=== PATIENT | female | born 1980 | race Caucasian/White ===

== ENCOUNTER 2023-09-23 12:07 | Outpatient (OUT) | payer OTHER, SELFPAY ==
[2023-09-23 12:29] LABS: Basophils Absolute Auto 0.1 10^3/uL (0.0-0.1); Basophils Percent Auto 0.9 % (0.2-2.0); Eosinophils Absolute Auto 0.1 10^3/uL (0.0-0.7); Eosinophils Percent Auto 0.9 % (0.9-7.0); Hematocrit 42.2 % (36.0-48.0); Immature Granulocytes Abs Auto 0.03 10^3/uL (0.00-0.03); Immature Granulocytes Pct Auto 0.5 % (0.0-0.5); Lymphocytes Absolute Auto 1.8 10^3/uL (1.2-3.8); Lymphocytes Percent Auto 33.6 % (20.5-60.0); Mean Corpuscular HGB Conc 33.2 g/dL (29.9-35.2); Mean Corpuscular Hemoglobin 32.3 pg (26.7-34.0); Mean Corpuscular Volume 97.5 fL (81.0-99.0); Mean Platelet Volume 8.4 fL (9.5-13.5); Monocytes Absolute Auto 0.6 10^3/uL (0.3-0.8); Monocytes Percent Auto 10.2 % (1.7-12.0); Neutrophils Percent Auto 53.9 % (43.0-75.0); Platelet Count 257 10^3/uL (150-450); Red Blood Count 4.33 10^6/uL (4.20-5.40); Red Cell Distribution Width 12.1 % (11.0-15.0); White Blood Count 5.5 10^3/uL (4.0-11.0)
[2023-09-23 12:43] LABS: Estimated Average Glucose 105 mg/dL; Glycohemoglobin A1C 5.3 % (4.5-6.2)
[2023-09-23 13:55] LABS: Alanine Aminotransferase 25 U/L (14-59); Albumin Globulin Ratio 1.3; Albumin Level 4.4 g/dL (3.4-5.0); Alkaline Phosphatase 44 U/L (46-116); Anion Gap 14.9; Aspartate Amino Transferase 14 U/L (15-37); BUN Creatinine Ratio 13.3; Bilirubin Direct 0.1 mg/dL (0.0-0.2); Bilirubin Total 0.5 mg/dL (0.2-1.0); Calcium 9.1 mg/dL (8.5-10.1); Carbon Dioxide 29.2 mmol/L (21.0-32.0); Chloride 101 mmol/L (98-107); Chol HDL Ratio 2.2; Cholesterol 228 mg/dL (<=200); Estimated GFR (African America >60 (>=60); Estimated GFR (Non-African Ame >60 (>=60); Globulin 3.3 g/dL; Glucose 88 mg/dL (74-106); HDL Cholesterol 103 mg/dL (40-60); Potassium 4.1 mmol/L (3.5-5.1); Sodium 141 mmol/L (136-145); Thyroid Stimulating Hormone 0.925 uIU/mL (0.358-3.740); Total Protein 7.7 g/dL (6.4-8.2); Triglycerides 52 mg/dL (<=150); VLDL CHOLESTEROL 10.4 mg/dL
== END 2023-09-23 12:08 | disposition home or self-care (01) ==
LOC: LAB 12:15
PROVIDERS: PCP Family Medicine; Visit Provider Family Medicine
DX: Z00.00 Encounter for general adult medical examination without abnormal findings (principal)
CPT/HCPCS: 36415; 80048; 80061; 80076; 83036; 84443; 85025

== ENCOUNTER 2024-01-14 19:13 | Outpatient (REF) | payer OTHER, SELFPAY ==
--- OUTSIDE RECORDS SUMMARY | 2024-01-14 19:19 | XMS_ITS | CCD ---
Author Name Unknown Address [address] [place] [id number] Organization [facility] Care Team Providers Care Hop Weigher Name Role Phone CARMELINA, DR CAROLINE Jaffe Consulting Unavailable NADERER, DR CAROLINE Jaffe Primary Care Unavailable NADERER, DR CAROLINE Jaffe Admitting Unavailable NADERER, DR CAROLINE Jaffe Attending Unavailable NADERER, DR CAROLINE Jaffe Primary Care Unavailable NARCISA, DR SLOAN Attending Unavailable NARCISA, DR SLOAN Consulting Unavailable NARCISA, DR SLOAN Admitting Unavailable ZIEBER, DR MICHAEL Al Consulting Unavailable CARMELINA, DR CAROLINE Jaffe Primary Care Unavailable NARCISA, DR SLOAN Attending Unavailable NARCISA, DR SLOAN Consulting Unavailable NARCISA, DR SLOAN Admitting Unavailable Problems Problem Classification Problem Date Documented Date Episodic/Chronic Benign neoplasm of uterus (1 source) Leiomyoma of uterus, unspecified; Translations: [LEIOMYOMA OF UTERUS UNSPECIFIED] Onset: 10-04-2022 Episodic Immunizations and screening for infectious disease (1 source) Encounter for screening for human papillomavirus (HPV); Translations: [ENC SCREENING HUMAN PAPILLOMAVIRUS] Onset: 09-13-2022 Episodic Menstrual disorders (4 sources) Excessive and frequent menstruation with irregular cycle; Translations: [EXCESS AND FREQ MEN W/IRREG CYCLE] Onset: 09-29-2022 Chronic Other screening for suspected conditions (not mental disorders or infectious disease) (5 sources) Encounter for screening mammogram for malignant neoplasm of breast; Translations: [Encounter for screening for malignant neoplasm of cervix] Onset: 09-09-2022 Episodic Residual codes; unclassified (1 source) Family history of malignant neoplasm of breast; Translations: [FAMILY HX MALIG NEOPLASM OF BREAST] Onset: 10-04-2022 Episodic Residual codes; unclassified (1 source) Family history of malignant neoplasm of other organs or systems; Translations: [FAM HX MALIG NEOPLASM OTH ORGN/SYS] Onset: 10-04-2022 Episodic Results Test Name Value Interpretation Reference Range Facility MG MAMM SCREEN 3D TEGAN CADon 09-29-2022 MG MAMM SCREEN 3D TEGAN CAD Patient: KIM PAGAN Exam Date: 09/29/2022 : 1980 Gender:F Ordering : DR NATHALIA BREWSTER . Admission #: [id number] Family : Order #: [id number] CLICK HERE TO VIEW EXAM RADIOLOGY REPORT PROCEDURE: MAMMOGRAM SCREENING 3D BILATERAL CAD COMPARISON: MG MAMM SCREEN 3D TEGAN CAD, 03/20/2021. MG MAMM SCREEN TEGAN W CAD, 03/17/2019. INDICATIONS: Screening mammography Calculator Name NCI Breast Cancer Risk Assessment Tool 5 Year Breast Cancer Risk 0.80% Lifetime Breast Cancer Risk 10.80% Personal Breast Cancer No Personal Ovarian Cancer No Treatments None Family Cancers Grandmother-paternal with breast cancer at age 70; Mother with endometrial cancer at age 71. LOCATION: [facility] BREAST COMPOSITION: Extremely dense, which lowers the sensitivity of mammography. FINDINGS: DIAGNOSTIC CATEGORY 2--BENIGN FINDING: RIGHT BREAST: No significant suspicious finding. Stable benign-appearing calcifications are present. No significant change has occurred. LEFT BREAST: No significant suspicious finding. No significant change has occurred. RECOMMENDATIONS: ROUTINE MAMMOGRAM AND CLINICAL EVALUATION IN 12 MONTHS. PLEASE NOTE: A NORMAL MAMMOGRAM DOES NOT EXCLUDE THE POSSIBILITY OF BREAST CANCER. A CLINICALLY SUSPICIOUS PALPABLE LUMP SHOULD BE BIOPSIED. Dictated by: Michael Epps M.D. on 09/30/2022 at 13:21 Approved by: Michael Epps M.D. on 09/30/2022 at 13:46 Normal [facility] US PELVIS AND TRANSVAGon US PELVIS AND TRANSVAG EXAMINATION: US PELVIS AND TRANSVAG HISTORY: Excessive menstruation with irregular cycle COMPARISON: Ultrasound pelvis 02/19/2021 TECHNIQUE: Transabdominal and transvaginal sonographic examination. FINDINGS: UTERUS: Heterogeneous, hypoechoic 1.2 cm rounded area within posterior myometrium which appears to contact the endometrial; likely a leiomyoma. Multiple small nabothian cysts within nicole of cervix. Uterus size: 9.8 x 5.4 x 6.7 cm ENDOMETRIUM: Normal homogeneous appearance. Endometrial thickness: 14 mm RIGHT OVARY: Contains a 2.9 cm benign-appearing cyst. Duplex Doppler demonstrates normal waveform and flow; resistive index 0.4. Ovary size: 4.4 x 4.0 x 2.7 cm LEFT OVARY: Normal size and appearance. Duplex Doppler demonstrates normal waveform and flow; resistive index 0.4. Ovary size: 2.1 x 1.7 x 2.2 cm CUL-DE-SAC: Unremarkable. No significant free fluid. BLADDER: Unremarkable. OTHER: None. IMPRESSION: 1. There appears to be a 1.2 cm leiomyoma within posterior uterine wall contacting the endometrial which may contribute to patient's symptoms. Electronically authenticated by: MICHAEL EPPS Date: 2022-09-29 19:23 Normal [facility] CBC AUTO DIFFon 09-22-2022 BASO # 0.0 103/ul Normal 0.0-0.1 [facility] Comment on above: Performed By: #### C BC #### [facility] [address] [place] [address] Dr. Ag Rubio Basophils/100 WBC (Bld) 0.9 % Normal 0.2-2.0 [facility] Comment on above: Performed By: #### C BC #### [facility] [address] [place] [address] Dr. Ag Rubio EO # 0.1 103/ul Normal 0.0-0.7 [facility] Comment on above: Performed By: #### C BC #### [facility] [address] [place] [address] Dr. Ag Rubio Eosinophils/100 WBC (Bld) 1.1 % Normal 0.9-7.0 [facility] Comment on above: Performed By: #### C BC #### [facility] [address] [place] [address] Dr. Ag Rubio Erythrocyte distribution width (RBC) [Ratio] 12.5 % Normal 11.0-15.0 [facility] Comment on above: Performed By: #### C BC #### [facility] [address] [place] [address] Dr. Ag Rubio Hematocrit (Bld) [Volume fraction] 38.7 % Normal 36.0-48.0 [facility] Comment on above: Performed By: #### C BC #### [facility] [address] [place] [address] Dr. Ag Rubio Hemoglobin (Bld) [Mass/Vol] 12.9 g/dL Normal 12.0-16.0 [facility] Comment on above: Performed By: #### C BC #### [facility] [address] [place] [address] Dr. Ag Rubio IG # 0.02 10e3/ul Normal 0.00-0.03 [facility] Comment on above: Performed By: #### C BC #### [facility] [address] [place] [address] Dr. Ag Rubio IG % 0.4 % Normal 0.0-0.5 [facility] Comment on above: Performed By: #### C BC #### [facility] [address] [place] [address] Dr. Ag Rubio LYMPH # 1.8 103/ul Normal 1.2-3.8 [facility] Comment on above: Performed By: #### C BC #### [facility] [address] [place] [address] Dr. Ag Rubio Lymphocytes/100 WBC (Bld) 37.4 % Normal 20.5-60.0 [facility] Comment on above: Performed By: #### C BC #### [facility] [address] [place] [address] Dr. Ag Rubio MANUAL DIFF REQ NO Normal [facility] Comment on above: Performed By: #### C BC #### [facility] [address] [place] [address] Dr. Ag Rubio MCH (RBC) [Entitic mass] 31.8 pg Normal 26.7-34.0 [facility] Comment on above: Performed By: #### C BC #### [facility] [address] [place] [address] Dr. Ag Rubio MCHC (RBC) [Mass/Vol] 33.3 g/dL Normal 29.9-35.2 [facility] Comment on above: Performed By: #### C BC #### [facility] [id number] Ag Rubio MCV (RBC) [Entitic vol] 95.3 fL Normal 81.0-99.0 [facility] Comment on above: Performed By: #### C BC #### [facility] [address] [address] [address] Ag Rubio MONO # 0.6 103/ul Normal 0.3-0.8 [facility] Comment on above: Performed By: #### C BC #### [facility] [address] [address] [address] Ag Rubio Monocytes/100 WBC (Bld) 12.4 % Critically high 1.7-12.0 [facility] Comment on above: Performed By: #### C BC #### [facility] [address] [place] [address] Dr. Ag Ruibo NEUT # 2.2 103/ul Normal 1.4-6.5 [facility] Comment on above: Performed By: #### C BC #### [facility] [address] [place] [address] Dr. Ag Rubio Neutrophils/100 WBC (Bld) 47.8 % Normal 43.0-75.0 [facility] Comment on above: Performed By: #### C BC #### [facility] [address] [place] [address] Dr. Ag Rubio Platelet mean volume (Bld) [Entitic vol] 9.1 fL Critically low 9.5-13.5 [facility] Comment on above: Performed By: #### C BC #### [facility] [address] [place] [address] Dr. Ag uRbio PLT 251 103/ul Normal 150-450 [facility] Comment on above: Performed By: #### C BC #### [facility] [address] [place] [address] Dr. Ag Rubio RBC 4.06 106/ul Critically low 4.20-5.40 [facility] Comment on above: Performed By: #### C BC #### [facility] [address] [place] [address] Dr. Ag Rubio WBC 4.7 103/ul Normal 4.0-11.0 [facility] Comment on above: Performed By: #### C BC #### [facility] [address] [address] [address] Ag Rubio GLYCOHEMOGLOBIN A1Con 2021 ADA RECOMMENDATION SEE BELOW Normal [facility] Comment on above: Result Comment: ADA RECOMMENDED LIMIT 4.0 - 6.0 ADA THERAPEUTIC TARGET < 7.0 ACTION SUGGESTED > 7.0 Performed By: #### A 1C #### [facility] [address] [address] [address] Ag Rubio Glucose [Mass/Vol] 117 mg/dL Normal [facility] Comment on above: Performed By: #### A 1C #### [facility] [address] [address] [address] Ag Rubio HbA1c (Bld) [Mass fraction] 5.7 % Normal 4.5-6.2 [facility] Comment on above: Performed By: #### A 1C #### [facility] [address] [address] [address] Ag Rubio LIPID PROFILEon 09-22-2022 CHOL-HDL RATIO NORM SEE BELOW Normal [facility] Comment on above: Result Comment: 3.3 - 4.4 LOW RISK 4.4 - 7.1 AVERAGE RISK 7.1 - 11.0 MODERATE RISK >11.0 HIGH RISK Performed By: #### T SH, BMP, LIVER, LIPID #### [facility] [address] [address] [address] Ag Rubio Cholesterol [Mass/Vol] 197 mg/dL Normal <=200 [facility] Comment on above: Performed By: #### T SH, BMP, LIVER, LIPID #### [facility] [address] [address] [address] Ag Rubio Cholesterol in HDL [Mass/Vol] 90 mg/dL Critically high 40-60 [facility] Comment on above: Performed By: #### T SH, BMP, LIVER, LIPID #### [facility] [address] [address] [address] Ag Rubio Cholesterol in LDL [Mass/Vol] 98.0 mg/dL Normal [facility] Comment on above: Performed By: #### T SH, BMP, LIVER, LIPID #### [facility] [address] [address] [address] Ag uRbio Cholesterol.total/Cho lesterol in HDL [Mass ratio] 2.2 {ratio} Normal [facility] Comment on above: Performed By: #### T SH, BMP, LIVER, LIPID #### [facility] [address] [address] [address] Ag Rubio HDL NORMAL > or = 60 mg/dl - LO W CARDIOVASCULAR RISK <40 mg/dl - HIGH CARDIOVASCULAR RISK Normal [facility] Comment on above: Performed By: #### T SH, BMP, LIVER, LIPID #### [facility] [address] [place] [address] Dr. Ag Rubio LDL CALC NORMAL SEE BELOW Normal [facility] Comment on above: Result Comment: <100 mg/dl OPTIMAL 100 - 129 mg/dl NEAR OR ABOVE OPTIMAL 130 - 159 mg/dl BORDERLINE HIGH 160 - 189 mg/dl HIGH >190 mg/dl VERY HIGH Performed By: #### T SH, BMP, LIVER, LIPID #### [facility] [address] [place] [address] Dr. Ag Rubio Triglyceride [Mass/Vol] 45 mg/dL Normal <=150 [facility] Comment on above: Performed By: #### T SH, BMP, LIVER, LIPID #### [facility] [address] [address] [address] Ag Rubio VLDL CALC 9.0 mg/dL Normal [facility] Comment on above: Performed By: #### T SH, BMP, LIVER, LIPID #### [facility] [address] [address] [address] Ag Rubio LIVER PROFILEon 09-22-2022 Albumin [Mass/Vol] 4.1 g/dL Normal 3.4-5.0 [facility] Comment on above: Performed By: #### T SH, BMP, LIVER, LIPID #### [facility] [address] [place] [address] Dr. Ag Rubio Albumin/Globulin [Mass ratio] 1.3 {ratio} Normal [facility] Comment on above: Performed By: #### T SH, BMP, LIVER, LIPID #### [facility] [address] [address] [address] Ag Rubio ALP [Catalytic activity/Vol] 40 U/L Critically low 46-116 [facility] Comment on above: Performed By: #### T SH, BMP, LIVER, LIPID #### [facility] [address] [place] [address] Dr. Ag Rubio ALT [Catalytic activity/Vol] 25 U/L Normal 14-59 [facility] Comment on above: Performed By: #### T SH, BMP, LIVER, LIPID #### [facility] [address] [place] [address] Dr. Ag Rubio AST [Catalytic activity/Vol] 20 U/L Normal 15-37 [facility] Comment on above: Performed By: #### T SH, BMP, LIVER, LIPID #### [facility] [address] [place] [address] Dr. Ag Rubio BILI, CONJUGATED 0.1 mg/dL Normal 0.0-0.[address] [facility] Comment on above: Performed By: #### T SH, BMP, LIVER, LIPID #### [facility] [address] [place] [address] Dr. Ag Rubio Bilirubin [Mass/Vol] 0.4 mg/dL Normal 0.2-1.0 [facility] Comment on above: Performed By: #### T SH, BMP, LIVER, LIPID #### [facility] [address] [place] [address] Dr. Ag Rubio Globulin (S) [Mass/Vol] 3.1 g/dL Normal [facility] Comment on above: Performed By: #### T SH, BMP, LIVER, LIPID #### [facility] [address] [place] [address] Dr. Ag Rubio Protein [Mass/Vol] 7.2 g/dL Normal 6.4-8.2 [facility] Comment on above: Performed By: #### T SH, BMP, LIVER, LIPID #### [facility] [address] [place] [address] Dr. Ag Rubio PROF CHEM 8 (BAS METB)on Anion gap [Moles/Vol] 10.1 mmol/L Normal [facility] Comment on above: Performed By: #### T SH, BMP, LIVER, LIPID #### [facility] [address] [place] [address] Dr. Ag Rubio Calcium [Mass/Vol] 9.3 mg/dL Normal 8.5-10.1 [facility] Comment on above: Performed By: #### T SH, BMP, LIVER, LIPID #### [facility] [address] [place] [address] Dr. Ag Rubio Chloride [Moles/Vol] 103 mmol/L Normal 98-107 [facility] Comment on above: Performed By: #### T SH, BMP, LIVER, LIPID #### [facility] [address] [place] [address] Dr. Ag Rubio CO2 [Moles/Vol] 28.9 mmol/L Normal 21.0-32.[address] [facility] Comment on above: Performed By: #### T SH, BMP, LIVER, LIPID #### [facility] [address] [place] [address] Dr. Ag Rubio Creatinine [Mass/Vol] 1.24 mg/dL Critically high 0.55-1.02 [facility] Comment on above: Performed By: #### T SH, BMP, LIVER, LIPID #### [facility] [address] [place] [address] Dr. Ag Rubio EGFR-AF LEBANESE 57 mL/min/1.73m2 Critically low >=60 [facility] Comment on above: Performed By: #### T SH, BMP, LIVER, LIPID #### [facility] [address] [place] [address] Dr. Ag Rubio EGFR-NON AF LEBANESE 47 mL/min/1.73m2 Critically low >=60 [facility] Comment on above: Performed By: #### T SH, BMP, LIVER, LIPID #### [facility] [address] [address] [address] Ag Rubio Glucose [Mass/Vol] 76 mg/dL Normal 74-106 [facility] Comment on above: Performed By: #### T SH, BMP, LIVER, LIPID #### [facility] [address] [address] [address] Ag Rubio Potassium [Moles/Vol] 4.0 mmol/L Normal 3.5-5.1 [facility] Comment on above: Performed By: #### T SH, BMP, LIVER, LIPID #### [facility] [address] [address] [address] Ag Rubio Sodium [Moles/Vol] 138 mmol/L Normal 136-145 [facility] Comment on above: Performed By: #### T SH, BMP, LIVER, LIPID #### [facility] [address] [place] [address] Dr. Ag Rubio Urea nitrogen [Mass/Vol] 10.0 mg/dL Normal 7.0-18.0 [facility] Comment on above: Performed By: #### T SH, BMP, LIVER, LIPID #### [facility] [address] [address] [address] gA Rubio Urea nitrogen/Creatinine [Mass ratio] 8.1 mg/mg Normal [facility] Comment on above: Performed By: #### T SH, BMP, LIVER, LIPID #### [facility] [address] [place] [address] Dr. Ag Rubio TSHon 09-22-2022 TSH 0.934 uIU/mL Normal 0.358-3.740 [facility] Comment on above: Performed By: #### T SH, BMP, LIVER, LIPID #### [facility] [address] [place] [address] Dr. Ag Rubio PAP ACOG PANEL 2: 30 to 65on 09-17-2022 . . Normal [facility] Comment on above: Result Comment: Perf ormed at: WB Performed By: #### [id number] #### [facility] [address] [place] [address] Dr. Ag Rubio Age Gdln ACOG Testing 30-65 Normal [facility] Comment on above: Performed By: #### [id number] #### [facility] [address] [place] [address] Dr. Ag Rubio DIAGNOSIS: Comment Normal [facility] Comment on above: Result Comment: NEGA TIVE FOR INTRAEPITHELIAL LESION OR MALIGNANCY. Performed at: WB Performed By: #### [id number] #### [facility] [address] [place] [address] Dr. Ag Rubio HPV Aptima Negative Normal Negative [facility] Comment on above: Result Comment: This nucleic acid amplification test detects fourteen high-risk HPV types (16,18,31,33,35,39,45,51,52,56,58,59,66,68) without differentiation. Performed at: =G Performed By: #### [id number] #### [facility] [address] [place] [address] Dr. Ag Rubio HPV Genotype Reflex Comment Normal [facility] Comment on above: Result Comment: Crit eria not met, HPV Genotype not performed. Performed at: WB Performed By: #### [id number] #### [facility] [address] [place] [address] Dr. Ag Rubio Methodology: Comment [facility] Comment on above: Result Comment: This liquid based ThinPrep(R) pap test was screened with the use of an image guided system. Performed at: WB Performed By: #### [id number] #### [facility] [address] [place] [address] Dr. Ag Rubio Note: Comment Normal [facility] Comment on above: Result Comment: The Pap smear is a screening test designed to aid in the detection of premalignant and malignant conditions of the uterine cervix. It is not a diagnostic procedure and should not be used as the sole means of detecting cervical cancer. Both false-positive and false-negative reports do occur. . Performed at: WB Performed By: #### [id number] #### [facility] [address] [place] [address] Dr. Ag Rubio Performed by: Comment Normal [facility] Comment on above: Result Comment: Rm Guerra, Party Supply Specialist (ASCP) Performed at: WB Performed By: #### [id number] #### [facility] [address] [place], [place] [address] Dr. Ag Rubio Specimen adequacy: Comment Normal [facility] Comment on above: Result Comment: Sati sfactory for evaluation. Endocervical and/or squamous metaplastic cells (endocervical component) are present. Performed at: WB Performed By: #### [id number] #### [facility] [address] [place], [place] [address] Dr. Ag Rubio Encounters Encounter Date Encounter Type Care Provider Facility Start: 09-29-2022 End: 09-30-[address] CAROLINE COSEM Facility:[facility] Start: 09-27-2022 Encounter for genera l adult medical examination without abnormal findings DR CAROLINE COSME [facility] Start: 09-22-2022 End: 09-23-[address] CAROLINE COSME Facility:[facility] Start: 09-22-2022 End: 09-23-2022 Encounter for general adult medical examination without abnormal findings DR CAROLINE COSME Facility:[facility] Start: 09-09-2022 End: 09-09-[address] CAROLINE COSME Facility:[facility] Payers Date Payer Category Payer Unknown [id number] [id number] [id number] 1980 Unknown [id number] [id number] [id number] 1980 Unknown [id number] [id number] 1960 Unknown [id number] Summary Purpose Family History No Family History Records Found Advance Directives No Advanced Directives Records Found Additional Source Comments INFORMATION SOURCE (unrecogn ized section and content) DATE CREATED AUTHOR 10/04/2022 [facility] FOR RECORDS PERTAINING TO PATIENTS WHO ARE OR HAVE BEEN ENROLLED IN A CHEMICAL DEPENDENCY/SUBSTANCEABUSE PROGRAM, SOME INFORMATION MAY BE OMITTED. This clinical summary was aggregated from multiple sources. Caution should be exercised in using it in the provision of clinical care. This summary normalizes information from multiple sources, and as a consequence, information in this document may materially change the coding, format and clinical context of patient data. In addition, data may be omitted in some cases. CLINICAL DECISIONS SHOULD BE BASED ON THE PRIMARY CLINICAL RECORDS. [facility]. provides no warranty or guarantee of the accuracy or completeness of information in this document.
[2024-01-20 11:09] LABS: Age Gdln ACOG Testing Note (.); HPV Aptima Negative (Negative); IGP, Aptima HPV, rfx 16/18,45 Note (.)
== END 2024-01-14 19:14 | disposition home or self-care (01) ==
LOC: LAB 19:13
PROVIDERS: PCP Family Medicine; Visit Provider Emergency Medicine
DX: Z01.419 Encounter for gynecological examination (general) (routine) without abnormal findings (principal)
CPT/HCPCS: 87624; G0145

== ENCOUNTER 2024-02-15 11:05 | Outpatient (OUT) | payer OTHER, SELFPAY ==
--- NOTE | 2024-02-15 11:09 | US_ITS ---
The [address] [address] Patient Name: KIM PAGAN MRN: [id number] date: 1980 Sex: F Assigned Patient Location: [facility] Current Patient Location: [facility] Accession/Order Number: [id number] Exam Date: 02/15/2024 11:09 Report Date: 02/15/2024 12:42 At the request of: BRANDON RICKS Procedure: US pelvis w/ transvaginal EXAMINATION: US pelvis w/ transvaginal HISTORY: MENORRHAGIA COMPARISON: No relevant comparison available. FINDINGS: Transabdominal and transvaginal images The uterus is normal in size and contour measuring 9.4 x 3.6 x 5.6 cm. Anteverted, anteflexed. Heterogeneous echotexture with 2 focal masses measuring 2.3 and 1.9 cm. The endometrium measures 9 mm, normal. The right ovary is normal measuring 4.6 x 2.6 x 3.5 cm. Normal color and Doppler flow. Areas of anechoic echogenicity measuring up to 3.6 cm The left ovary measures 2.8 x 1.7 x 2.7 cm. Normal color Doppler flow US/US pelvis w/ transvaginal IMPRESSION: 2 myometrial masses, fibroids are statistically favored 3.6 cm right ovarian cyst Electronically authenticated by: IVETTE WINSLOW Date: 02/15/2024 12:42
--- OUTSIDE RECORDS SUMMARY | 2024-02-15 11:21 | XMS_ITS | CCD ---
Author Organization [facility] Care Team Providers Care Medical Intern Name Role Phone CARMELINA, DR CAROLINE Jaffe Consulting Unavailable NADERER, DR CAROLINE Jaffe Primary Care Unavailable NADERER, DR CAROLINE Jaffe Admitting Unavailable NADERER, DR CAROLNIE Jaffe Attending Unavailable NADERER, DR CAROLINE Jaffe Primary Care Unavailable NARCISA, DR SLOAN Attending Unavailable NARCISA, DR SLOAN Consulting Unavailable NARCSIA, DR SLOAN Admitting Unavailable ZIEBER, DR MICHAEL Al Consulting Unavailable CARMELINA, DR CAROLINE Jaffe Primary Care Unavailable NARCISA, DR SLOAN Attending Unavailable NARCISA, DR SLOAN Consulting Unavailable NARCISA, DR SLOAN Admitting Unavailable RAMBOBRANDON Attending Unavailable Problems Problem Classification Problem Date Documented [...] : DR NATHALIA BREWSTER . Admission #: [id number] Family : Order #: [id number] CLICK HERE TO VIEW EXAM RADIOLOGY REPORT [...] endometrial cancer at age 70. LOCATION: [facility] BREAST COMPOSITION: Extremely dense, which lowers the [...] M.D. on 09/30/2022 at 13:46 Normal [facility] US PELVIS AND TRANSVAGon US PELVIS AND [...] MICHAEL EPPS Date: 2022-09-29 19:23 Normal [facility] CBC AUTO DIFFon 09-22-2022 BASO # 0.0 103/ul Normal 0.0-0.1 [facility] Comment on above: Performed By: #### C BC #### [facility] [address] [place] [address] Dr. Ag Rubio Basophils/100 WBC (Bld) 0.9 % Normal 0.2-2.0 [facility] Comment on above: Performed By: #### C BC #### [facility] [address] [address] [address] Ag Rubio EO # 0.1 103/ul Normal 0.0-0.7 [facility] Comment on above: Performed By: #### C BC #### [facility] [address] [place] [address] Dr. Ag Rubio Eosinophils/100 WBC (Bld) 1.1 % Normal 0.9-7.0 [facility] Comment on above: Performed By: #### C BC #### [facility] [address] [place] [address] Dr. Ag Rubio Erythrocyte distribution width (RBC) [Ratio] 12.5 % Normal 11.0-15.0 [facility] Comment on above: Performed By: #### C BC #### [facility] [address] [place] [address] Dr. Ag Rubio Hematocrit (Bld) [Volume fraction] 38.7 % Normal 36.0-48.0 [facility] Comment on above: Performed By: #### C BC #### [facility] [address] [place] [address] Dr. Ag Rubio Hemoglobin (Bld) [Mass/Vol] 12.9 g/dL Normal 12.0-16.0 [facility] Comment on above: Performed By: #### C BC #### [facility] [address] [place] [address] Dr. Ag Rubio IG # 0.02 10e3/ul Normal 0.00-0.03 [facility] Comment on above: Performed By: #### C BC #### [facility] [address] [place] [address] Dr. Ag Rubio IG % 0.4 % Normal 0.0-0.5 [facility] Comment on above: Performed By: #### C BC #### [facility] [address] [place] [address] Dr. Ag Rubio LYMPH # 1.8 103/ul Normal 1.2-3.8 [facility] Comment on above: Performed By: #### C BC #### [facility] [address] [place] [address] Dr. Ag Rubio Lymphocytes/100 WBC (Bld) 37.4 % Normal 20.5-60.0 [facility] Comment on above: Performed By: #### C BC #### [facility] [address] [place] [address] Dr. Ag Rubio MANUAL DIFF REQ NO Normal [facility] Comment on above: Performed By: #### C BC #### [facility] [address] [place] [address] Dr. Ag Rubio MCH (RBC) [Entitic mass] 31.8 pg Normal 26.7-34.0 [facility] Comment on above: Performed By: #### C BC #### [facility] [address] [place] [address] Dr. Ag Rubio MCHC (RBC) [Mass/Vol] 33.3 g/dL Normal 29.9-35.2 [facility] Comment on above: Performed By: #### C BC #### [facility] [address] [place], [place] [id number] Dr. Ag Rubio MCV (RBC) [Entitic vol] 95.3 fL Normal 81.0-99.0 [facility] Comment on above: Performed By: #### C BC #### [facility] [address] [place] [address] Dr. Ag Rubio MONO # 0.6 103/ul Normal 0.3-0.8 [facility] Comment on above: Performed By: #### C BC #### [facility] [address] [place] [address] Dr. Ag Rubio Monocytes/100 WBC (Bld) 12.4 % Critically high 1.7-12.0 [facility] Comment on above: Performed By: #### C BC #### [facility] [address] [place] [address] Dr. Ag Rubio NEUT # 2.2 103/ul Normal 1.4-6.5 [facility] Comment on above: Performed By: #### C BC #### [facility] [address] [place] [address] Dr. Ag Rubio Neutrophils/100 WBC (Bld) 47.8 % Normal 43.0-75.0 [facility] Comment on above: Performed By: #### C BC #### [facility] [address] [place] [address] Dr. Ag Rubio Platelet mean volume (Bld) [Entitic vol] 9.1 fL Critically low 9.5-13.5 [facility] Comment on above: Performed By: #### C BC #### [facility] [address] [place] [address] Dr. Ag Rubio PLT 251 103/ul Normal 150-450 [facility] Comment on above: Performed By: #### C BC #### [facility] [address] [place] [address] Dr. Ag Rubio RBC 4.06 106/ul Critically low 4.20-5.40 [facility] Comment on above: Performed By: #### C BC #### [facility] [address] [place] [address] Dr. Ag Rubio WBC 4.7 103/ul Normal 4.0-11.0 [facility] Comment on above: Performed By: #### C BC #### [facility] [address] [address] [address] Ag Rubio GLYCOHEMOGLOBIN A1Con 2021 ADA RECOMMENDATION SEE BELOW Normal [facility] Comment on above: Result Comment: ADA RECOMMENDED LIMIT 4.0 - 6.0 ADA THERAPEUTIC TARGET < 7.0 ACTION SUGGESTED > 7.0 Performed By: #### A 1C #### [facility] [address] [address] [address] Ag Rubio Glucose [Mass/Vol] 117 mg/dL Normal [facility] Comment on above: Performed By: #### A 1C #### [facility] [address] [place] [address] Dr. Ag Rubio HbA1c (Bld) [Mass fraction] 5.7 % Normal 4.5-6.2 [facility] Comment on above: Performed By: #### A 1C #### [facility] [address] [place] [address] Dr. Ag Rubio LIPID PROFILEon 09-22-2022 CHOL-HDL RATIO NORM SEE BELOW Normal [facility] Comment on above: Result Comment: 3.3 - 4.4 LOW RISK 4.4 - 7.1 AVERAGE RISK 7.1 - 11.0 MODERATE RISK >11.0 HIGH RISK Performed By: #### T SH, BMP, LIVER, LIPID #### [facility] [address] [place] [address] Dr. Ag Rubio Cholesterol [Mass/Vol] 197 mg/dL Normal <=200 [facility] Comment on above: Performed By: #### T SH, BMP, LIVER, LIPID #### [facility] [address] [address] [address] Ag Rubio Cholesterol in HDL [Mass/Vol] 90 mg/dL Critically high 40-60 [facility] Comment on above: Performed By: #### T SH, BMP, LIVER, LIPID #### [facility] [address] [address] [address] Ag Rubio Cholesterol in LDL [Mass/Vol] 98.0 mg/dL Normal [facility] Comment on above: Performed By: #### T SH, BMP, LIVER, LIPID #### [facility] [address] [address] [address] Ag Rubio Cholesterol.total/Cho lesterol in HDL [Mass ratio] 2.2 {ratio} Normal [facility] Comment on above: Performed By: #### T SH, BMP, LIVER, LIPID #### [facility] [address] [address] [address] Ag Rubio HDL NORMAL > or = 60 mg/dl - LO W CARDIOVASCULAR RISK <40 mg/dl - HIGH CARDIOVASCULAR RISK Normal [facility] Comment on above: Performed By: #### T SH, BMP, LIVER, LIPID #### [facility] [address] [place] [address] Dr. Ag Rubio LDL CALC NORMAL SEE BELOW Normal [facility] Comment on above: Result Comment: <100 mg/dl OPTIMAL 100 - 129 mg/dl NEAR OR ABOVE OPTIMAL 130 - 159 mg/dl BORDERLINE HIGH 160 - 189 mg/dl HIGH >190 mg/dl VERY HIGH Performed By: #### T SH, BMP, LIVER, LIPID #### [facility] [address] [place] [address] Dr. Ag Rubio Triglyceride [Mass/Vol] 45 mg/dL Normal <=150 [facility] Comment on above: Performed By: #### T SH, BMP, LIVER, LIPID #### [facility] [address] [address] [address] Ag Rubio VLDL CALC 9.0 mg/dL Normal [facility] Comment on above: Performed By: #### T SH, BMP, LIVER, LIPID #### [facility] [address] [address] [address] Ag Rubio LIVER PROFILEon 09-22-2022 Albumin [Mass/Vol] 4.1 g/dL Normal 3.4-5.0 [facility] Comment on above: Performed By: #### T SH, BMP, LIVER, LIPID #### [facility] [address] [place] [address] Dr. Ag Rubio Albumin/Globulin [Mass ratio] 1.3 {ratio} Normal [facility] Comment on above: Performed By: #### T SH, BMP, LIVER, LIPID #### [facility] [address] [place] [address] Dr. Ag Rubio ALP [Catalytic activity/Vol] 40 U/L Critically low 46-116 [facility] Comment on above: Performed By: #### T SH, BMP, LIVER, LIPID #### [facility] [address] [place] [address] Dr. Ag Rubio ALT [Catalytic activity/Vol] 25 U/L Normal 14-59 [facility] Comment on above: Performed By: #### T SH, BMP, LIVER, LIPID #### [facility] [address] [place] [address] Dr. Ag Rubio AST [Catalytic activity/Vol] 20 U/L Normal 15-37 [facility] Comment on above: Performed By: #### T SH, BMP, LIVER, LIPID #### [facility] [address] [place] [address] Dr. Ag Rubio BILI, CONJUGATED 0.1 mg/dL Normal 0.0-0.2 [facility] Comment on above: Performed By: #### T SH, BMP, LIVER, LIPID #### [facility] [address] [place] [address] Dr. Ag Rubio Bilirubin [Mass/Vol] 0.4 mg/dL Normal 0.2-1.0 [facility] Comment on above: Performed By: #### T SH, BMP, LIVER, LIPID #### [facility] [address] [place] [address] Dr. Ag Rubio Globulin (S) [Mass/Vol] 3.1 g/dL Normal [facility] Comment on above: Performed By: #### T SH, BMP, LIVER, LIPID #### [facility] [address] [place] [address] Dr. Ag Rubio Protein [Mass/Vol] 7.2 g/dL Normal 6.4-8.2 [facility] Comment on above: Performed By: #### T SH, BMP, LIVER, LIPID #### [facility] [address] [address] [address] Ag Rubio PROF CHEM 8 (BAS METB)on Anion gap [Moles/Vol] 10.1 mmol/L Normal [facility] Comment on above: Performed By: #### T SH, BMP, LIVER, LIPID #### [facility] [address] [address] [address] Ag Rubio Calcium [Mass/Vol] 9.3 mg/dL Normal 8.5-10.1 [facility] Comment on above: Performed By: #### T SH, BMP, LIVER, LIPID #### [facility] [address] [address] [address] Ag Rubio Chloride [Moles/Vol] 103 mmol/L Normal 98-107 [facility] Comment on above: Performed By: #### T SH, BMP, LIVER, LIPID #### [facility] [address] [place] [address] Dr. Ag Rubio CO2 [Moles/Vol] 28.9 mmol/L Normal 21.0-32.0 [facility] Comment on above: Performed By: #### T SH, BMP, LIVER, LIPID #### [facility] [address] [place] [address] Dr. Ag Rubio Creatinine [Mass/Vol] 1.24 mg/dL Critically high 0.55-1.02 [facility] Comment on above: Performed By: #### T SH, BMP, LIVER, LIPID #### [facility] [address] [place] [address] Dr. Ag Rubio EGFR-AF BHUTANESE 57 mL/min/1.73m2 Critically low >=60 [facility] Comment on above: Performed By: #### T SH, BMP, LIVER, LIPID #### [facility] [address] [place] [address] Dr. Ag Rubio EGFR-NON AF BHUTANESE 47 mL/min/1.73m2 Critically low >=60 [facility] Comment on above: Performed By: #### T SH, BMP, LIVER, LIPID #### [facility] [address] [address] [address] Ag Rubio Glucose [Mass/Vol] 76 mg/dL Normal 74-106 [facility] Comment on above: Performed By: #### T SH, BMP, LIVER, LIPID #### [facility] [address] [address] [address] Ag Rubio Potassium [Moles/Vol] 4.0 mmol/L Normal 3.5-5.1 [facility] Comment on above: Performed By: #### T SH, BMP, LIVER, LIPID #### [facility] [address] [address] [address] Ag Rubio Sodium [Moles/Vol] 138 mmol/L Normal 136-145 [facility] Comment on above: Performed By: #### T SH, BMP, LIVER, LIPID #### [facility] [address] [address] [address] Ag Rubio Urea nitrogen [Mass/Vol] 10.0 mg/dL Normal 7.0-18.0 [facility] Comment on above: Performed By: #### T SH, BMP, LIVER, LIPID #### [facility] [address] [address] [address] Ag Rubio Urea nitrogen/Creatinine [Mass ratio] 8.1 mg/mg Normal [facility] Comment on above: Performed By: #### T SH, BMP, LIVER, LIPID #### [facility] [address] [place] [address] Dr. Ag Rubio TSHon 09-22-2022 TSH 0.934 uIU/mL Normal 0.358-3.740 [facility] Comment on above: Performed By: #### T SH, BMP, LIVER, LIPID #### [facility] [address] [address] [address] Ag Rubio PAP ACOG PANEL 2: 30 to 65on 09-17-2022 . . Normal [facility] Comment on above: Result Comment: Perf ormed at: WB Performed By: #### [id number] #### [facility] [address] [place] [address] Dr. Ag Rubio Age Gdln ACOG Testing 30-65 Normal [facility] Comment on above: Performed By: #### [id number] #### [facility] [address] [place] [address] Dr. Ag Rubio DIAGNOSIS: Comment Normal [facility] Comment on above: Result Comment: NEGA TIVE FOR INTRAEPITHELIAL LESION OR MALIGNANCY. Performed at: WB Performed By: #### [id number] #### [facility] [address] [place] [address] Dr. Ag Rubio HPV Aptima Negative Normal Negative [facility] Comment on above: Result Comment: This nucleic acid amplification test detects fourteen high-risk HPV types (16,18,31,33,35,39,45,51,52,56,58,59,66,68) without differentiation. Performed at: =G Performed By: #### [id number] #### [facility] [address] [place] [address] Dr. Ag Rubio HPV Genotype Reflex Comment Normal [facility] Comment on above: Result Comment: Crit eria not met, HPV Genotype not performed. Performed at: WB Performed By: #### [id number] #### [facility] [address] [place] [address] Dr. Ag Rubio Methodology: Comment Normal [facility] Comment on above: Result Comment: This liquid based ThinPrep(R) pap test was screened with the use of an image guided system. Performed at: WB Performed By: #### [id number] #### [facility] [address] [place] [address] Dr. Ag Rubio Note: Comment Normal [facility] Comment on above: Result Comment: The Pap smear is a screening test designed to aid in the detection of premalignant and malignant conditions of the uterine cervix. It is not a diagnostic procedure and should not be used as the sole means of detecting cervical cancer. Both false-positive and false-negative reports do occur. . Performed at: WB Performed By: #### [id number] #### [facility] [address] [place] [address] Dr. Ag Rubio Performed by: Comment Normal [facility] Comment on above: Result Comment: Rm Guerra, Rn Diabetes Educator (ASCP) Performed at: WB Performed By: #### [id number] #### [facility] [address] [place], [place] [address] Dr. Ag Rubio Specimen adequacy: Comment Normal [facility] Comment on above: Result Comment: Sati sfactory for evaluation. Endocervical and/or squamous metaplastic cells (endocervical component) are present. Performed at: WB Performed By: #### [id number] #### [facility] [address] [place], [place] [address] Dr. Ag Rubio Encounters Encounter Date Encounter Type Care Provider Facility Start: 01-14-2024 End: 01-14-2024 ambulatory BRANDON RICKS Not Available Start: 09-29-2022 End: 09-30-[address] CAROLINE COSME Facility:[facility] Start: 09-27-2022 Encounter for genera l adult medical examination without abnormal findings DR CAROLINE COSME [facility] Start: 09-22-2022 End: 09-23-[address] CAROLINE COSME Facility:[facility] Start: 09-22-2022 End: 09-23-2022 Encounter for general adult medical examination without abnormal findings DR CAROLINE COSME Facility:[facility] Start: 09-09-2022 End: 09-09-[address] CAROLINE COSME Facility:[facility] Payers Date Payer Category Payer Unknown [id number] .16.84 [id number] 1979 Unknown [id number] .[id number] 1979 Unknown [id number] .16.84 [id number] 1979 Unknown [id number] 1959 Unknown [id number] Summary Purpose Family History No Family History Records FoundNo Family History Records Found Advance Directives No Advanced Directives Records FoundNo Advanced Directives Records Found Additional Source Comments INFORMATION SOURCE (unrecogn ized section and content) DATE CREATED AUTHOR 10/04/[address] [facility] DATE CREATED AUTHOR AUTHOR'S EMANUEL PERLACHANTELL 01/16/2024 [facility] dical Specialists [facility] FOR RECORDS PERTAINING TO PATIENTS WHO ARE [...] BE BASED ON THE PRIMARY CLINICAL RECORDS. [facility] [employer] provides no warranty or guarantee of the accuracy or completeness of information in this document.
== END 2024-02-15 11:06 | disposition home or self-care (01) ==
LOC: NOMS 11:06
PROVIDERS: PCP Family Medicine; Visit Provider Physician Assistant
DX: N92.0 Excessive and frequent menstruation with regular cycle (principal); N83.291 Other ovarian cyst, right side
CPT/HCPCS: 76830; 76856

== ENCOUNTER 2025-04-06 20:02 | Outpatient (REF) | payer OTHER, SELFPAY ==
--- OUTSIDE RECORDS SUMMARY | 2025-03-31 10:30 | XMS_ITS | Encounter Summary ---
Author Organization [facility] Address [address] [place] [address] Care Team Providers Care Log Washer Name Role Phone Cesar Eaton MD Primary Care Provider [phone] Reason for Visit * Rehabilitation - Outpatient (Routine) - Authorized Specialty Diagnoses / Procedures Referred By Contmaddie ventura Referred To Contact Physical Therapy Diagnoses Temporomandibular dysfunction syndrome Neck pain Procedures MT OFFICE/OUTPATIENT NEW HIGH MDM 60 MINUTES Cesar Eaton MD [address] [place] [address] Phone: tel: fax: Sarahy Hui, PT [address] [place] [address] Phone: tel: fax: Referral ID Status Reason Start Date Expiration Date Visits Requested Visits Authorized [id number] Authorized Consult and Treat 12/08/2024 11/01/2025 30 30 Encounter Details Date Type Department Care Team (Late st Contact Info) Description 03/31/2025 10:30 AM EDT Treatment [facility] [address] [place] [address] Sarahy Hui PT [address] [place] [address] Neck pain (Primary Dx); Myofascial pain dysfunction syndrome; Temporomandibular dysfunction syndrome Social History Tobacco Use Types Packs/Day Years Used Date Smoking Tobacco: Never Smokeless Tobacco: Never Alcohol Use Standard Drinks/Week Comments Never 0 (1 standard drink = 0.6 oz pur e alcohol) Comments Unknown Sex and Gender Information Value Date Recorded Sex Assigned at Not on file Legal Sex Female 6:48 PM EDT Gender Identity Not on file Sexual Orientation Not on file documented as of this encounter Progress Notes * Sarahy Hui, PT - 03/31/2025 10:30 AM EDT Physical Therapy Physical Therapy Treatment Visit Time In: 10:35 am Time Out: 11:15 am Supervised Time: 40 Total Time: 40 Visit number: 08/01 Precautions: R sided lipoma submandibular Subjective Chief Complaint: M26.609 (ICD-10-CM) - Temporomandibular dysfunction syndrome M54.2 (ICD-10-CM) - Neck pain 3. 2 HAs the first week, 2nd GIBSON no meds. No HAs this week. Slight GIBSON when waking up yesterday but went away immediately. Tightness on upper R side of neck mild. INTERVENTIONS: X30 minutes of manual therapy thoracic, cervical X10 minutes of therex of postural stretching per flowsheet Assessment/Plan Reports compliance with home stretches. Up to 4 minutes on thoracic roll. Focus on R upper cervicalspine today with R rotation end range. Able to improve R rotation ROM actively without pain. She isnoticing improvement with turning head to the R with less stiffness, elan while driving. She is having less HAs and less neck pain in general. She will keep a record of her GIBSON frequency and if meds req uired to abolish in order to track progress. Will see again in 2 weeks. documented in this encounter Plan of Treatment Upcoming Encounters Date Type Department Care Team (Late st Contact Info) Description 04/17/2025 10:45 AM EDT Treatment [facility] [address] [place] [address] Sarahy Hui PT [address] [place] [address] documented as of this encounter Visit Diagnoses Diagnosis Neck pain- Primary Cervicalgia Myofascial pain dysfunction syndrome Unspecified myalgia and myositis Temporomandibular dysfunction syndrome Unspecified temporomandibular joint disorders documented in this encounter Care Teams Log Washer Relationship Specialty Start Date End Date Cesar Eaton MD [address] [place] [id number] PCP - General Family Medicine 10/03/24 documented as of this encounter
--- OUTSIDE RECORDS SUMMARY | 2025-04-06 11:40 | XMS_ITS | Encounter Summary ---
Author Organization [facility] Address [address] [place] [address] Care Team Providers Care Employment Assistant Name Role Phone Cesar Eaton MD Primary Care Provider [phone] Reason for Visit * Reason Comments Well Women Visit Encounter Details Date Type Department Care Team (Late st Contact Info) Description 04/06/2025 11:40 AM EDT Office Visit [facility] OB [address] [place] [id number] Jono Rivas, DO [address] [place] [address] Well woman exam with routine gynecological exam; Breast cancer screening by mammogram Social History Tobacco Use Types Packs/Day Years [...] on file documented as of this encounter Last Filed Vital Signs Vital Sign Reading Time Taken Comments Blood Pressure 112/68 04/06/2025 12:13 PM EDT Pulse - - Temperature - - Respiratory Rate - - Oxygen Saturation - - Inhaled Oxygen Concentration - - Weight 61.1 kg (134 lb 12.8 oz) 025 12:13 PM EDT Height - - Body Mass Index 23.88 12/08/2024 10:40 AM EST documented in this encounter Progress Notes * RAYSA Lawton - 04/06/2025 11:40 AM EDT Reason for Appointment: Patient ID: Emilee Garcia is a 45 y.o. female who presents for Well Women Visit Patient presents today for Annual Exam. MEDICATIONS No current outpatient medications ALLERGIES No Known Allergies PROBLEMS Active Ambulatory Problems Diagnosis Date Noted Cyst of ovary 03/17/2024 Encounter to discuss test results 03/17/2024 Varicose veins of both lower extremities with pain 10/03/2024 Allergic rhinitis due to pollen 10/03/2024 Phlebitis and thrombophlebitis of superficial vessels of lower extremities, bilateral 10/03/2024 Annual physical exam 10/03/2024 Temporomandibular dysfunction syndrome 12/08/2024 Neck pain 12/08/2024 Localized swelling, mass and lump, neck 12/08/2024 Hiatal hernia with gastroesophageal reflux disease without esophagitis 12/19/2024 Myofascial pain dysfunction syndrome 01/08/2025 Resolved Ambulatory Problems Diagnosis Date Noted No Resolved Ambulatory Problems Past Medical History: Diagnosis Date Depression ([facility]) Dysuria Ovarian cyst Phlebitis Varicose vein of leg HISTORY PAST MEDICAL HISTORY SOCIAL HISTORY Past Medical History: Diagnosis Date Depression (CMS/HCC) Dysuria Ovarian cyst Phlebitis Varicose vein of leg Social History Tobacco Use Smoking status: Never Smokeless tobacco: Never Substance Use Topics Alcohol use: Never Drug use: Never FAMILY HISTORY Family History Problem Relation Name Age of Onset Endometrial cancer Mother Hypertension Father Mental illness Brother Heart disease Paternal Grandfather SURGICAL HISTORY Past Surgical History: Procedure Laterality Date MOUTH SURGERY OTHER SURGICAL HISTORY phlebectomy OTHER SURGICAL HISTORY epidermal cyst REVIEW OF SYSTEMS Review of Systems: Review of Systems Constitutional: Negative. HENT: Negative. Eyes: Negative. Respiratory: Negative. Cardiovascular: Negative. Gastrointestinal: Negative. Genitourinary: Negative. Musculoskeletal: Negative. Skin: Negative. Neurological: Negative. All other systems reviewed and are negative. Hematological: Negative. Endocrine: Negative. Allergic/Immunologic: Negative. OBJECTIVE Objective: Physical Exam Constitutional: Appearance: Normal appearance. Genitourinary: Right Adnexa: not tender and no mass present. Left Adnexa: not tender and no mass present. No cervical discharge. Breasts: Breasts are soft. Right: Normal. Left: Normal. HENT: Head: Normocephalic. Nose: Nose normal. Mouth/Throat: Mouth: Mucous membranes are moist. Cardiovascular: Rate and Rhythm: Normal rate. Pulmonary: Effort: Pulmonary effort is normal. Abdominal: General: Bowel sounds are normal. Palpations: Abdomen is soft. Musculoskeletal: General: Normal range of motion. Cervical back: Normal range of motion. Neurological: General: No focal deficit present. Mental Status: She is alert. Skin: General: Skin is warm and dry. Psychiatric: Mood and Affect: Mood normal. Vitals and nursing note reviewed. Exam conducted with a binder sorter present. Vitals: Estimated body mass index is 23.88 kg/m?? as calculated from the following: Height as of 12/08/24: 5' 3 . Weight as of this encounter: 134 lb 12.8 oz. BP: 112/68 No LMP recorded. ASSESSMENT & PLAN ICD-10-CM 1. Well woman exam with routine gynecological exam Z01.419 THIN PREP TIS PAP AND HR HPV DNA 2. Breast cancer screening by mammogram Z12.31 Bilateral screening mammogram Bilateral screening mammogram Patient states sister had irregular cell on breast tissue and going through further testing. Patient herself asymptomatic. We discussed genetic testing today and options. Annual Exam: Patient presents today for an annual exam. Patient states she is doing well and has no complaints. Pap was obtained without difficulty. Orders Placed This Encounter Procedures Bilateral screening mammogram Follow Up: Patient is to return in one year for annual unless needed otherwise. Documented by RAYSA Lawton on behalf of: Jono Rivas DO documented in this encounter Plan of Treatment Upcoming Encounters Date Type Department Care Team (Late st Contact Info) Description 04/17/2025 10:45 AM EDT Treatment [facility] [address] [place] [address] Sarahy Hui, PT [address] [place] [address] Scheduled Orders Name Type Priority Associated Diagnoses Orde r Schedule Bilateral screening mammogram Imaging Routine Breast cancer screening by mammogram Expected: 04/06/2025 (Approximate), Expires: 06/06/2026 THIN PREP TIS PAP AND HR HPV DNA Pathology and Cytology Routine Well woman exam with routine gynecological exam Ordered: 04/06/2025 documented as of this encounter Visit Diagnoses Diagnosis Well woman exam with routine gynecological exam Routine gynecological examination Breast cancer screening by mammogram documented in this encounter Care Teams Employment Assistant Relationship Specialty Start Date End Date Cesar Eaton MD [address] [place] [address] PCP - General Family Medicine 10/03/24 documented as of this encounter
--- OUTSIDE RECORDS SUMMARY | 2025-04-06 20:05 | XMS_ITS | Encounter Summary ---
Author Organization [facility] Address [address] [place] [address] Care Team Providers Care Cushion Maker Hand Name Role Phone Ceasr Eaton MD Primary Care Provider [phone] Cesar Eaton MD Primary Care Provider [phone] Encounter Details Date Type Department Care Team (Late st Contact Info) Description 02/15/2024 Clinisync Result Encounter [facility] External Department Unsolicited Provider, Generic External Data Social History Tobacco Use Types Packs/Day Years Used Date Smoking Tobacco: Never Alcohol Use Standard Drinks/Week Comments Never 0 (1 standard drink = 0.6 oz pur e alcohol) Comments Unknown Sex and Gender Information Value Date Recorded Sex Assigned at Not on file Legal Sex Female 6:48 PM EDT Gender Identity Not on file Sexual Orientation Not on file documented as of this encounter Plan of Treatment Upcoming Encounters Date Type Department Care Team (Late Contact Info) Description 04/17/2025 10:45 AM EDT Treatment [facility] [address] [place] [address] Sarahy Hui, PT [address] [place] [address] documented as of this encounter Procedures Procedure Name Priority Date/Time Associated Diagnosis Comments US PELVIS W/ TRANSVAGINAL 02/15/2024 12:42 PM EDT documented in this encounter Results * US PELVIS W/ TRANSVAGINAL (02/15/2024 12:42 PM EDT) Anatomical Region Laterality Modality Other 02/15/2024 12:4 2 PM EDT Narrative 02/15/2024 12:45 PM EDT [address] [address] Ultrasound Report Signed Patient: EMILEE GARCIA MR#: [id number] : 1980 Acct:[id number] Age/Sex: 44 / F ADM Date: 02/15/24 Loc: [facility] Attending Dr: Rufina Ricks Ordering Physician: Rufina Ricks Date of Service: 02/15/24 Procedure(s): US pelvis w/ transvaginal Accession Number(s): [id number] cc: Rufina Ricks; Cesar Eaton M.D. [address] [address] Patient Name: EMILEE GARCIA MRN: [id number] date: 1980 Sex: F Assigned Patient Location: [facility] Current Patient Location: [facility] Accession/Order Number: [id number] Exam Date: 02/15/2024 11:09 Report Date: 02/15/2024 12:42 At the request of: RUFINA RICKS Procedure: US pelvis w/ transvaginal EXAMINATION: US pelvis w/ transvaginal HISTORY: MENORRHAGIA COMPARISON: No relevant comparison available. FINDINGS: Transabdominal and transvaginal images The uterus is normal in size and contour measuring 9.4 x 3.6 x 5.6 cm. Anteverted, anteflexed. Heterogeneous echotexture with 2 focal masses measuring 2.3 and 1.9 cm. The endometrium measures 9 mm, normal. The right ovary is normal measuring 4.6 x 2.6 x 3.5 cm. Normal color and Doppler flow. Areas of anechoic echogenicity measuring up to 3.6 cm The left ovary measures 2.8 x 1.7 x 2.7 cm. Normal color Doppler flow US/US pelvis w/ transvaginal IMPRESSION: 2 myometrial masses, fibroids are statistically favored 3.6 cm right ovarian cyst Electronically authenticated by: IVETTE WINSLOW Date: 02/15/2024 12:42 Dictated By: Ivette Winslow M.D. Signed By: 02/15/24 1245 DD/ 1242 TD/TT: Scullion Chief: Procedure Note Radiology, Radiologist, MD - 02/15/2024 [place] [address] Ultrasound Report Signed Patient: EMILEE GARCIA LMR#: [id number] : 1980Acct:[id number] Age/Sex: 44 / FADM Date: 02/15/24 Loc: [facility] Attending Dr: Rufina Ricks Ordering Physician: Rufina Ricks Date of Service: 02/15/24 Procedure(s): US pelvis w/ transvaginal Accession Number(s): [id number] cc: Rufina Ricks; Cesar Eaton M.D. [address] [place] [address] Patient Name: EMILEE GARCIA MRN: [id number] date: 1980 Sex: F Assigned Patient Location: [facility] Current Patient Location: [facility] Accession/Order Number: [id number] Exam Date: 02/15/2024 11:09 Report Date: 02/15/2024 12:42 At the request of: RUFINA RICKS Procedure: US pelvis w/ transvaginal EXAMINATION: US pelvis w/ transvaginal HISTORY: MENORRHAGIA COMPARISON: No relevant comparison available. FINDINGS: Transabdominal and transvaginal images The uterus is normal in size and contour measuring 9.4 x 3.6 x 5.6 cm. Anteverted, anteflexed. Heterogeneous echotexture with 2 focal masses measuring 2.3 and 1.9 cm. The endometrium measures 9 mm, normal. The right ovary is normal measuring 4.6 x 2.6 x 3.5 cm. Normal color and Doppler flow. Areas of anechoic echogenicity measuring up to 3.6 cm The left ovary measures 2.8 x 1.7 x 2.7 cm. Normal color Doppler flow US/US pelvis w/ transvaginal IMPRESSION: 2 myometrial masses, fibroids are statistically favored 3.6 cm right ovarian cyst Electronically authenticated by: IVETTE WINSLOW Date: 02/15/2024 12:42 Dictated By: Ivette Winslow M.D. Signed By:02/15/24 1245 DD/ 1242 TD/TT: Scullion Chief: us Generic External Data Provider [facility] Final Result documented in this encounter Visit Diagnoses Not on filedocumented in this encounter Care Teams Cushion Maker Hand Relationship Specialty Start Date End Date Cesar Eaton MD PCP - General Family Medicine 01/14/24 10/02/24 Cesar Eaton MD [address] [place] [address] PCP - General Family Medicine 10/03/24 documented as of this encounter
--- OUTSIDE RECORDS SUMMARY | 2025-04-06 20:05 | XMS_ITS | Encounter Summary ---
Author Organization [facility] Address [address] [place] [address] Care Team Providers Care Lumber Handler Name Role Phone Cesar Eaton MD Primary Care Provider [phone] Encounter Details Date Type Department Care Team ([facility] Contact Info) Description 03/31/2025 Bamboo flowsheet [facility] [address] [place] [address] Sarahy Hui PT [address] [place] [address] Social History Tobacco Use Types Packs/Day Years [...] Upcoming Encounters Date Type Department Care Team ([facility] Contact Info) Description 04/17/2025 10:45 AM EDT Treatment [facility] [address] [place] [address] Sarahy Hui PT [address] [place] [address] documented as of this encounter Visit Diagnoses Not on filedocumented in this encounter Care Teams Lumber Handler Relationship Specialty Start Date End Date Cesar Eaton MD [address] [place] [address] PCP - General Family Medicine 10/03/24 documented as of this encounter
--- OUTSIDE RECORDS SUMMARY | 2025-04-06 20:05 | XMS_ITS | Clinical Summary ---
Author Organization [facility] Address [address] [place] [address] Care Team Providers Care Senior Network Security Engineer Name Role Phone Cesar Eaton MD Primary Care Provider [phone] Allergies No known active allergies Medications cyclobenzaprine (Flexeril) 10 MG tabletIndications:Te mporomandibular dysfunction syndrome Take 1 tablet (10 mg) by mouth 3 (three) times a day as needed for muscle spasms 30 tablet 2 12/08/19 25 025 Discontin ued(Other ) omeprazole (PriLOSEC) [address] capsuleIndications:H iatal hernia with gastroesophageal reflux disease without esophagitis Take 1 capsule (40 mg) by mouth in the morning. Take before meals. Do not crush or chew.. 30 capsule 5 12/19/19 25 025 Discontin ued(Other ) Active Problems Problem Noted Date Diagnosed Date Myofascial pain dysfunction syndrome 01/08/2025 Hiatal hernia with gastroeso phageal reflux disease without esophagitis 12/19/2024 Temporomandibular dysfunction syndrome Assessment & Plan (12/08/2024 11:11 AM EST): Increased pain and treat with prednisone. Start flexeril PRN. Refer to PT. Follow up with specialist. Neck pain 12/08/2024 Localized swelling, mass and lump, neck 12/08/19 Assessment & Plan (12/08/2024 11:10 AM EST): Severe swelling in submandibular region and check US. Possibly enlarged lymph node related to TMJ. Varicose veins of both lower extremities with pa in 10/03/2024 Allergic rhinitis due to pollen 10/03/2024 Phlebitis and thrombophlebit is of superficial vessels of lower extremities, bilateral 10/03/2024 Annual physical exam 10/03/2024 Assessment & Plan (10/03/2024 3:28 PM EST): Due for labs. Discussed proper diet and regular aerobic exercise. Need aerobic exercise 5-6 days a week for 30 minutes at a time. Smaller portions and limit total calories. Refer for colonoscopy. Tetanus every 10 years. Advised not to smoke. Discussed daily Aspirin therapy. Cyst of ovary 03/17/2024 Encounter to discuss test results 03/17/2024 Encounters Date Type Department Care Team Description 04/06/2025 11:40 AM EDT Office Visit [facility] OB [address] [address] Jono Rivas, Well woman exam with routine gynecological exam; Breast cancer screening by mammogram 04/06/2025 Bamboo flowsheet [facility] OB [address] [address] Jono Rivas DO 03/31/2025 10:30 AM EDT Treatment [facility] [address] [place] [address] Sarahy Hui, PT Neck pain (Primary Dx); Myofascial pain dysfunction syndrome; Temporomandibular dysfunction syndrome 03/31/2025 Bamboo flowsheet [facility] [address] [place] [address] Sarahy Hui, PT 03/31/2025 Travel 03/17/2025 3:30 PM EDT Treatment [facility] [address] [place] [address] Sarahy Hui, PT Neck pain (Primary Dx); Myofascial pain dysfunction syndrome; Temporomandibular dysfunction syndrome 03/17/2025 Bamboo flowsheet [facility] [address] [place] [address] Sarahy Hui, PT 03/17/2025 Travel 03/01/2025 3:30 PM EDT Treatment [facility] [address] [place] [address] Sarahy Hui, PT Neck pain (Primary Dx); Myofascial pain dysfunction syndrome; Temporomandibular dysfunction syndrome 03/01/2025 Bamboo flowsheet [facility] [address] [place] [address] Sarahy Hui, PT 03/01/2025 Travel 02/22/2025 3:45 PM EDT Treatment [facility] [address] [place] [address] Sarahy Hui, PT Neck pain (Primary Dx); Myofascial pain dysfunction syndrome; Temporomandibular dysfunction syndrome 02/22/2025 Bamboo flowsheet [facility] [address] [place] [address] Sarahy Hui, PT 02/22/2025 Travel 02/15/2025 3:30 PM EDT Treatment [facility] [address] [place] [address] Sarahy Hui, PT Neck pain (Primary Dx); Myofascial pain dysfunction syndrome; Temporomandibular dysfunction syndrome 02/15/2025 Bamboo flowsheet [facility] [address] [place] [address] Sarahy Hui, PT 02/15/2025 Travel 02/08/2025 3:30 PM EDT Treatment [facility] [address] [place] [address] Sarahy Hui, PT Neck pain (Primary Dx); Myofascial pain dysfunction syndrome; Temporomandibular dysfunction syndrome 02/08/2025 Bamboo flowsheet [facility] [address] [place] [address] Sarahy Hui, PT 02/08/2025 Travel 01/31/2025 4:30 PM EDT Treatment [facility] [address] [place] [address] Sarahy Hui, PT Neck pain (Primary Dx); Myofascial pain dysfunction syndrome; Temporomandibular dysfunction syndrome 01/31/2025 Bamboo flowsheet [facility] [address] [place] [address] Sarahy Hui PT 01/31/2025 Travel 01/25/2025 Travel 01/24/2025 4:30 PM EDT Treatment [facility] [address] [place] [address] Sarahy Hui PT Neck pain (Primary Dx); Myofascial pain dysfunction syndrome; Temporomandibular dysfunction syndrome 01/20/2025 Telephone [facility] [address] [place] [address] Cesar Eaton MD Med Refill 01/08/2025 Plan of Care Documentation [facility] [address] [place] [address] from Last 3 Months Family History Medical History Relation Name Comments Mental illness Brother Hypertension Father Endometrial cancer Mother Heart disease Paternal Grandfather Relation Name Status Comments Brother Alive Father Alive Maternal Grandfather Maternal Grandmother Mother Paternal Grandfather Paternal Grandmother Sister Alive Social History Tobacco Use Types Packs/Day Years Used Date Smoking Tobacco: Never Smokeless Tobacco: Never Tobacco Cessation:Counseling Given: Not Answered Alcohol Use Standard Drinks/Week Comments Never 0 (1 standard drink = 0.6 oz pur e alcohol) Comments Unknown Sex and Gender Information Value Date Recorded Sex Assigned at Not on file Legal Sex Female 6:48 PM EDT Gender Identity Not on file Sexual Orientation Not on file Last Filed Vital Signs Vital Sign Reading Time Taken Comments Blood Pressure 112/68 04/06/2025 12:13 PM EDT Pulse 129 12/08/2024 10:40 AM EST Temperature 36.3 C (97.3 F) 12/08/2024 10:40 AM EST Respiratory Rate 20 12/08/2024 10:4 0 AM EST Oxygen Saturation 99% 12/08/2024 10: 40 AM EST Inhaled Oxygen Concentration - - Weight 61.1 kg (134 lb 12.8 oz) 025 12:13 PM EDT Height 160 cm (5' 3 ) 12/08/2024 10:40 AM EST Body Mass Index 23.88 12/08/2024 10:40 AM EST Plan of Treatment Upcoming Encounters Date Type Department Care Team (Late st Contact Info) Description 04/17/2025 10:45 AM EDT Treatment [facility] [address] [place] [address] Sarahy Hui, PT [address] [place] [address] Health Maintenance Due Date Last Done Comments CT Colonography 1980 Colonoscopy 1980 Colorectal Cancer Screening 1980 FIT-DNA 1980 FIT 1980 FOBT 1980 Sigmoidoscopy 1980 HPV/Cotest 2009 Mammogram 09/29/2023 09/29/2022, 09/09/2022 Influenza Vaccine (Season Ended) 2025 Cervical Cancer Screening 01/13/2027 Pap Smear 01/13/2027 01/14/2024 Procedures Procedure Name Priority Date/Time Associated Diagnosis Comments PAP SMEAR Routine 01/14/2024 12:00 AM EDT BI MAMMOGRAM SCREENING TOMOSYNTHESIS BILATERAL Routine 09/29/2022 from Last 3 Months or Most Recently Relevant to Health Maintenance Results * Pap Smear (01/14/2024 12:00 AM EDT) Swab Cervical swab / Unknown us [facility] Nurse LAB CYTOLOGY ORDERABLES Final Result EXTERNAL LAB * Bilateral screening mammogram with tomosynthesis (09/29/2022) Anatomical Region Laterality Modality Breast Bilateral Mammography Narrative 09/29/2022 12:00 AM EST PERFORMED AT [facility] LOCATION:[address] Patient: JOSE Marie. Exam Date: 09/29/2022 : 1980 Gender:F Ordering : DR JONO RIVAS . Admission #: [id number] Family : Order #: [id number] CLICK HERE TO VIEW EXAM RADIOLOGY REPORT PROCEDURE: MAMMOGRAM SCREENING 3D BILATERAL CAD COMPARISON: MG MAMM SCREEN 3D TEGAN CAD 03/20/2021. MG MAMM SCREEN TEGAN W CAD 03/17/2019. INDICATIONS: Screening mammography Calculator Name NCI Breast Cancer Risk Assessment Tool 5 Year Breast Cancer Risk 0.80% Lifetime Breast Cancer Risk 10.80% Personal Breast Cancer No Personal Ovarian Cancer No Treatments None Family Cancers Grandmother-paternal with breast cancer at age 70; Mother with endometrial cancer at age 71. LOCATION: [facility] BREAST COMPOSITION: Extremely dense which lowers the sensitivity of mammography. FINDINGS: [...] Michael Epps M.D. on 09/30/2022 at 13:46 Procedure Note CONVERSION, GENERIC - 05/08/2023 PERFORMED AT [facility] LOCATION:[address] Patient: JOSE Marie. Exam Date: 09/29/2022 : 1980 Gender:F Ordering : DR JONO RIVAS . Admission #: [id number] Family : Order #: [id number] CLICK HERE TO VIEW EXAM RADIOLOGY REPORT PROCEDURE: MAMMOGRAM SCREENING 3D BILATERAL CAD COMPARISON: MG MAMM SCREEN 3D TEGAN CAD 03/20/2021. MG MAMM SCREEN TEGAN W CAD 03/17/2019. INDICATIONS: Screening mammography Calculator Name NCI Breast Cancer Risk Assessment Tool 5 Year Breast Cancer Risk 0.80% Lifetime Breast Cancer Risk 10.80% Personal Breast Cancer No Personal Ovarian Cancer No Treatments None Family Cancers Grandmother-paternal with breast cancer at age 70; Mother with endometrial cancer at age 71. LOCATION: [facility] BREAST COMPOSITION: Extremely dense which lowers the sensitivity of mammography. FINDINGS: DIAGNOSTIC CATEGORY 2--BENIGN FINDING: RIGHT BREAST: No significant suspicious finding. Stablebenign-appearing calcifications are present. No significant change has occurred. LEFT BREAST: No significant suspicious finding. No significant changehas occurred. RECOMMENDATIONS: ROUTINE MAMMOGRAM AND CLINICAL EVALUATION IN 12 MONTHS. PLEASE NOTE: A NORMAL MAMMOGRAM DOES NOT EXCLUDE THE POSSIBILITY OFBREAST CANCER. A CLINICALLY SUSPICIOUS PALPABLE LUMP SHOULD BE BIOPSIED. Dictated by: Michael Epps M.D. on 09/30/2022 at 13:21 Approved by: Michael Epps M.D. on 09/30/2022 at 13:46 Jono Rivas DO IMG BI PROCEDURES Final Result from Last 3 Months or Most Recently Relevant to Health Maintenance Insurance GENERIC OTHER Care Teams Senior Network Security Engineer Relationship Specialty Start Date End Date Cesar Eaton MD [address] [place] [address] PCP - General Family Medicine 10/03/24
--- OUTSIDE RECORDS SUMMARY | 2025-04-06 20:05 | XMS_ITS | Encounter Summary ---
Author Organization [facility] Address [address] [place] [address] Care Team Providers Care Fws Faculty Assistant Name Role Phone Cesar Eaton MD Primary Care Provider [phone] Encounter Details Date Type Department Care Team ([facility] Contact Info) Description 04/06/2025 Bamboo flowsheet [facility] OB [address] [place] [address] Jono Rivas, DO [address], [facility] Social History Tobacco Use Types Packs/Day Years [...] Upcoming Encounters Date Type Department Care Team ([facility] Contact Info) Description 04/17/2025 10:45 AM EDT Treatment [facility] [address] [place] [address] Sarahy Hui, PT [address] [place] [address] documented as of this encounter Visit Diagnoses Not on filedocumented in this encounter Care Teams Fws Faculty Assistant Relationship Specialty Start Date End Date Cesar Eaton MD [address] [place] [address] PCP - General Family Medicine 10/03/24 documented as of this encounter
--- OUTSIDE RECORDS SUMMARY | 2025-04-06 20:05 | XMS_ITS | Encounter Summary ---
Author Organization [facility] Address [address] [place] [address] Care Team Providers Care Manufacturing Tech Name Role Phone Cesar Eaton MD Primary Care Provider [phone] Encounter Details Date Type Department Care Team (Latest Contact Info) Description 03/31/2025 Travel Social History Tobacco Use Types Packs/Day Years [...] AM EDT Treatment [facility] [address] [place] [address] Sarahy Hui, PT [address] [place] [address] documented as of this encounter Visit Diagnoses Not on filedocumented in this encounter Care Teams Manufacturing Tech Relationship Specialty Start Date End Date Cesar Eaton MD [address] [place] [address] PCP - General Family Medicine 10/03/24 documented as of this encounter
--- OUTSIDE RECORDS SUMMARY | 2025-04-06 20:05 | XMS_ITS | Clinical Summary ---
Author Organization [facility] Address [id number] [address] 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 Phone Cesar Eaton MD Primary Care Provider [phone] Allergies Active Allergy Reactions Criticality Noted Date Comments No Known Drug Allergies 09/24/2016 Medications No known medications Active Problems No known active problems Social History Tobacco Use Types Packs/Day Years Used Date Smoking Tobacco: Never Alcohol Use Standard Drinks/Week Comments No 0 (1 standard drink = 0.6 oz pur e alcohol) Childcare Answer Date Recorded Childcare Unknown 04/13/2019 Employment Answer Date Recorded Employment Unknown 04/13/2019 Purpose - Life Answer Date Recorded Purpose and direction in life Unknown Comments Unknown Sex and Gender Information Value Date Recorded Sex Assigned at Not on file Legal Sex Female 12:03 PM EDT Gender Identity Not on file Sexual Orientation Not on file Last Filed Vital Signs Vital Sign Reading Time Taken Comments Blood Pressure 116/72 01/29/2018 9:40 AM EDT Pulse - - Temperature - - Respiratory Rate - - Oxygen Saturation - - Inhaled Oxygen Concentration - - Weight 56.7 kg (125 lb) 01/29/2018 9:40 AM EDT Height 160 cm (5' 3 ) 01/29/2018 9:40 AM EDT Body Mass Index 22.14 01/29/2018 9:40 AM EDT Plan of Treatment Health Maintenance Due Date Last Done Comments Depression Screening 1991 Tobacco Screening 1991 Adult BMI Screening 1997 DTaP,Tdap and Td Vaccines (1 - Tdap) 1998 Influenza Vaccine 07/03/2025 Pap Smear 01/13/2027 01/14/2024 Medical Devices Not on file Insurance [id number] 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
--- OUTSIDE RECORDS SUMMARY | 2025-04-06 20:07 | XMS_ITS | CCD ---
Author Organization [facility] Care Team Providers Care Senior Software Manager Name Role Phone CARMELINA, DR CESAR Jaffe Consulting Unavailable NADERER, DR CESAR Jaffe Primary Care Unavailable NADERER, DR CESAR Jaffe Admitting Unavailable NADERER, DR CESAR Jaffe Attending Unavailable NADERER, DR CESAR Jaffe Primary Care Unavailable NARCISA, DR SLOAN Attending Unavailable NARCISA, DR SLOAN Consulting Unavailable NARCISA, DR SLOAN Admitting Unavailable ZIEBER, DR MICHAEL Al Consulting Unavailable NADERER, DR CESAR Jaffe Primary Care Unavailable NARCISA, DR SLOAN Attending Unavailable NARCISA, DR SLOAN Consulting Unavailable NARICSA, DR SLOAN Admitting Unavailable Cesar Cosme MD Primary Care Provider NO FAMILY, PHYSICIAN Primary Care Provider Unava ilable Tika Rojas DO Attending Provider Tika Rojas Attending Unavailable Tika Rojas Admitting Unavailable NO FAMILY, PHYSICIAN Primary Care Unavailable CESAR COSME Attending Unavailable NADERECESAR Al Referring Unavailable PLEASNICK, SARAHY Jaffe Attending Unavailab le NADERECESAR Al Referring Unavailable PLEASNICK, SARAHY Jaffe Attending Unavailab le CESAR COSME Referring Unavailable PLEASNICK, SARAHY Jaffe Attending Unavailab le CESAR COSME Referring Unavailable PLEASNICK, SARAHY Jaffe Attending Unavailab le CESAR COSME Referring Unavailable NADERECESAR Al Attending Unavailable PLEASNICK, SARAHY Jaffe Attending Unavailab le CESAR COSME Referring Unavailable PLEASNICK, SARAHY Jaffe Attending Unavailab le CESAR COSME Referring Unavailable PLEASNICK, SARAHY Jaffe Attending Unavailab le CESAR COSME Referring Unavailable PLEASNICK, SARAHY Jaffe Attending Unavailab le OBEDERECESAR Al Referring Unavailable PLEASNICK, SARAHY Jaffe Attending Unavailab le OBEDEREMikaela CESAR Referring Unavailable Medications Current Medications Medication Drug Class(es) Dates Sig (Normalized) Sig (Original) cyclobenzaprine hydrochloride 10 mg oral tablet (17 sources) Muscle Relaxant Start: 12-08-2024 take 1 tablet by mouth three times daily as needed for muscle spasms cyclobenzaprine (Flexeril) 10 MG tablet Indications: Temporomandibular dysfunction syndrome Take 1 tablet (10 mg) by mouth 3 (three) times a day as needed for muscle spasms 30 tablet 2 12/08/2024 Active omeprazole 40 mg delayed release oral capsule (15 sources) Proton Pump Inhibitor Start: 12-19-2024 take 1 capsule by mouth before mealtime omeprazole (PriLOSEC) [address] capsule Indications: Hiatal hernia with gastroesophageal reflux disease without esophagitis Take 1 capsule (40 mg) by mouth in the morning. Take before meals. Do not crush or chew.. 30 capsule 5 12/19/2024 Active predniSONE 50 mg oral tablet (2 sources) Start: 12-08-2024 End: 12-14-2024 take 1 tablet by mouth once daily predniSONE (Deltasone) 50 MG tablet Indications: Temporomandibular dysfunction syndrome Take 1 tablet (50 mg) by mouth Daily for 6 days 6 tablet 12/08/2024 12/14/2024 Active Problems Active Problems Problem Classification Problem Date Documented Date Episodic/Chronic Benign neoplasm of uterus (1 source) Leiomyoma of uterus, unspecified; Translations: [LEIOMYOMA OF UTERUS UNSPECIFIED] Onset: 10-04-2022 Episodic Disorders of teeth and jaw (20 sources) Temporomandibular joint disorder; Translations: [Unspecified temporomandibular joint disorder, unspecified side] Onset: 12-08-2024 12-08-2024 Episodic Immunizations and screening for infectious disease (1 source) Encounter for screening for human papillomavirus (HPV); Translations: [ENC SCREENING HUMAN PAPILLOMAVIRUS] Onset: 09-13-2022 Episodic Menstrual disorders (4 sources) Excessive and frequent menstruation with irregular cycle; Translations: [EXCESS AND FREQ MEN W/IRREG CYCLE] Onset: 09-29-2022 Chronic Other connective tissue disease (20 sources) Myofascial pain syndrome; Translations: [Myalgia, other site] Onset: 01-08-2025 01-08-2025 Episodic Other screening for suspected conditions (not mental disorders or infectious disease) (7 sources) Encounter for screening mammogram for malignant neoplasm of breast; Translations: [Encounter for screening for malignant neoplasm of cervix] Onset: 09-09-2022 Episodic Other upper respiratory disease (20 sources) Allergic rhinitis due to pollen; Translations: [Allergic rhinitis due to pollen] Onset: 10-03-2024 10-03-2024 Chronic Residual codes; unclassified (1 source) Family history of malignant neoplasm of breast; Translations: [FAMILY HX MALIG NEOPLASM OF BREAST] Onset: 10-04-2022 Episodic Residual codes; unclassified (1 source) Family history of malignant neoplasm of other organs or systems; Translations: [FAM HX MALIG NEOPLASM OTH ORGN/SYS] Onset: 10-04-2022 Episodic Spondylosis; intervertebral disc disorders; other back problems (20 sources) Neck pain; Translations: [Cervicalgia] Onset: 12-08-2024 12-08-2024 Episodic Past or Other Problems Problem Classification Problem Date Documented Da te Episodic/Chronic Abdominal hernia (15 sources) Gastroesophageal reflux disease with hiatal hernia; Translations: [Diaphragmatic hernia without obstruction or gangrene] Onset: 5 12-19-2024 Episodic Administrative/social admission (20 sources) Patient encounter status; Translations: [Person consulting for explanation of examination or test findings] Onset: 4 03-17-2024 Episodic Other skin disorders (19 sources) Finding of neck region; Translations: [Localized swelling, mass and lump, neck] Onset: 5 12-08-2024 Episodic Ovarian cyst (20 sources) Cyst of ovary; Translations: [Unspecified ovarian cyst, unspecified side] Onset: 4 03-17-2024 Episodic Phlebitis; thrombophlebitis and thromboembolism (20 sources) Phlebitis of superficial veins of lower extremity; Translations: [Phlebitis and thrombophlebitis of superficial vessels of lower extremities, bilateral] Onset: 4 10-03-2024 Episodic Unclassified (2 sources) Patient encounter status 10-03-2024 Varicose veins of lower extremity (20 sources) Varicose veins of lower extremity; Translations: [Varicose veins of bilateral lower extremities with pain] Onset: 4 10-03-2024 Episodic Results Test Name Value Interpretation Reference Range Facility A1C with Estimated Average Trae pierre 01-11-2025 Glucose [Mass/Vol] 105 mg/dL Normal [facility] Comment on above: Result Comment: PERF ORMED BY: [place] [address] PATHOLOGIST [employer] TIGHTENER MARVIN MACDONALD M.D. Performed By: #### A 1C WTH eA, CBC, T3F, CMP, LIPID, T4T, T3T, TSH3 #### [facility] [address] HbA1c (Bld) [Mass fraction] 5.3 % Normal 4.3-5.6 [facility] Comment on above: Result Comment: Incr eased risk for diabetes: 5.7 - 6.4 diabetes: >6.4 glycemic control for adults with diabetes: <7.0 Performed By: #### A 1C WTH eA, CBC, T3F, CMP, LIPID, T4T, T3T, TSH3 #### [facility] [address] Alanine aminotransferase [En zymatic activity/volume] in Serum or PlasmaOrdered By: Tika Rojas on 01-11-2025 ALT [Catalytic activity/Vol] Alanine aminotransferase [Enzymatic activity/volume] in Serum or Plasma 7-52 [facility] Albumin [Mass/volume] in Ser um or Plasma by Bromocresol green (BCG) dye binding methoOrdered By: Tika Rojas on 01-11-2025 Albumin BCG dye [Mass/Vol] Albumin [Mass/volume] in Serum or Plasma by Bromocresol green (BCG) dye binding metho 3.5-5.7 [facility] Alkaline phosphatase [Enzyma tic activity/volume] in Serum or PlasmaOrdered By: Tika Rojas on 01-11-2025 ALP [Catalytic activity/Vol] Alkaline phosphatase [Enzymatic activity/volume] in Serum or Plasma 34-104 [facility] Aspartate aminotransferase [ Enzymatic activity/volume] in Serum or PlasmaOrdered By: Tika Rojas on 01-11-2025 AST [Catalytic activity/Vol] Aspartate aminotransferase [Enzymatic activity/volume] in Serum or Plasma 13-39 [facility] Basophils Auto (Bld) [#/Vol] Ordered By: Tika Rojas on 01-11-2025 Basophils (Bld) [#/Vol] Automated basoph il count 0.0-0.2 [facility] Basophils/100 WBC Auto (Bld) Ordered By: Tika Rojas on 01-11-2025 Basophils/100 WBC (Bld) Automated basophil % . [facility] Bilirubin.total [Mass/volume ] in Serum or PlasmaOrdered By: Tika Rojas on 01-11-2025 Bilirubin [Mass/Vol] Bilirubin.total [Mass/volume] in Serum or Plasma 0.3-1.0 [facility] Calcium [Mass/volume] in Ser um or PlasmaOrdered By: Tika Rojas on 01-11-2025 Calcium [Mass/Vol] Calcium [Mass/volume ] in Serum or Plasma 8.6-10.3 [facility] Carbon dioxide, total [Moles /volume] in Serum or PlasmaOrdered By: Tika Rojas on 01-11-2025 CO2 [Moles/Vol] Carbon dioxide, tota l [Moles/volume] in Serum or Plasma 21.0-31.0 [facility] Chloride [Moles/volume] in S mike or PlasmaOrdered By: Tika Rojas on 01-11-2025 Chloride [Moles/Vol] Chloride [Moles/volume] in Serum or Plasma 98-107 [facility] Cholesterol [Mass/volume] in Serum or PlasmaOrdered By: Tika Rojas on 01-11-2025 Cholesterol [Mass/Vol] Cholesterol [Mass/volume] in Serum or Plasma High 140-200 [facility] Comment on above: Chol less than 200 m g/dl low riskChol 201-239 mg/dl borderline riskChol 240 mg/dl and greater high risk Cholesterol in HDL [Mass/vol ume] in Serum or PlasmaOrdered By: Tika Rojas on 01-11-2025 Cholesterol in HDL [Mass/Vol] Serum or plasma high density lipoprotein (HDL) cholesterol measurement [facility] Comment on above: HDL CHOL ATP-III CLA SSIFICATION Cardiovascular RiskHDL > or equal to 60 mg/dL LOWHDL < 40 mg/dL HIGH Cholesterol in LDL Calc [Mas s/Vol]Ordered By: Tika Rojas on 01-11-2025 Cholesterol in LDL [Mass/Vol] Cholesterol in LDL [Mass/volume] in Serum or Plasma by calculation High 0-100 [facility] Comment on above: LDL ATP III CLASSIFI CATIONLDL less than 100 mg/dL OptimalLDL 100-129 mg/dL Near or above optimalLDL 130-159 mg/dL Borderline highLDL 160-189 mg/dL HighLDL greater than 189 mg/dL Very high Cholesterol in VLDL Calc [Ma ss/Vol]Ordered By: Tika Rojas on 01-11-2025 Cholesterol in VLDL [Mass/Vol] Cholesterol in VLDL [Mass/volume] in Serum or Plasma by calculation [facility] Complete Blood Count Auto Di ffon 01-11-2025 Basophils (Bld) [#/Vol] 0.1 10*3/uL Normal 0.0-0.2 [facility] Comment on above: Result Comment: PERF ORMED BY: [place] [address] PATHOLOGIST [employer] TIGHTENER MARVIN MACDONALD M.D. Performed By: #### A 1C WTH eA, CBC, T3F, CMP, LIPID, T4T, T3T, TSH3 #### [facility] [address] [place] [address] [place] Basophils/100 WBC (Bld) 0.9 % Normal . [facility] Comment on above: Performed By: #### A 1C WTH eA, CBC, T3F, CMP, LIPID, T4T, T3T, TSH3 #### [facility] [address] [place] [address] [place] Eosinophils (Bld) [#/Vol] 0.1 10*3/uL Normal 0.0-0.45 [facility] Comment on above: Performed By: #### A 1C WTH eA, CBC, T3F, CMP, LIPID, T4T, T3T, TSH3 #### [address] Eosinophils/100 WBC (Bld) 1.4 % Normal . [facility] Comment on above: Performed By: #### A 1C WTH eA, CBC, T3F, CMP, LIPID, T4T, T3T, TSH3 #### [address] Erythrocyte distribution width (RBC) [Ratio] 13.0 % Normal 11.9-15.3 [facility] Comment on above: Performed By: #### A 1C WTH eA, CBC, T3F, CMP, LIPID, T4T, T3T, TSH3 #### [address] Hematocrit (Bld) [Volume fraction] 41.1 % Normal 34.0-46.4 [facility] Comment on above: Performed By: #### A 1C WTH eA, CBC, T3F, CMP, LIPID, T4T, T3T, TSH3 #### [address] Hemoglobin (Bld) [Mass/Vol] 14.2 g/dL Normal 11.8-15.4 [facility] Comment on above: Performed By: #### A 1C WTH eA, CBC, T3F, CMP, LIPID, T4T, T3T, TSH3 #### [address] Lymphocytes (Bld) [#/Vol] 1.4 10*3/uL Normal 1.00-4.8 [facility] Comment on above: Performed By: #### A 1C WTH eA, CBC, T3F, CMP, LIPID, T4T, T3T, TSH3 #### [address] Lymphocytes/100 WBC (Bld) 24.6 % Normal . [facility] Comment on above: Performed By: #### A 1C WTH eA, CBC, T3F, CMP, LIPID, T4T, T3T, TSH3 #### [address] MCH (RBC) [Entitic mass] 32.5 pg Normal 24.7-34.3 [facility] Comment on above: Performed By: #### A 1C WTH eA, CBC, T3F, CMP, LIPID, T4T, T3T, TSH3 #### [address] MCV (RBC) [Entitic vol] 94.4 fL Normal 80-100 [facility] Comment on above: Performed By: #### A 1C WTH eA, CBC, T3F, CMP, LIPID, T4T, T3T, TSH3 #### [address] Mean Corpuscular HGB Conc 34.5 g/dL Normal 32.0-35.0 [facility] Comment on above: Performed By: #### A 1C WTH eA, CBC, T3F, CMP, LIPID, T4T, T3T, TSH3 #### [address] Monocytes (Bld) [#/Vol] 0.5 10*3/uL Normal 0.0-0.8 [facility] Comment on above: Performed By: #### A 1C WTH eA, CBC, T3F, CMP, LIPID, T4T, T3T, TSH3 #### [address] Monocytes/100 WBC (Bld) 8.8 % Normal . [facility] Comment on above: Performed By: #### A 1C WTH eA, CBC, T3F, CMP, LIPID, T4T, T3T, TSH3 #### [address] Neutrophils (Bld) [#/Vol] 3.8 10*3/uL Normal 1.8-7.7 [facility] Comment on above: Performed By: #### A 1C WTH eA, CBC, T3F, CMP, LIPID, T4T, T3T, TSH3 #### [address] Neutrophils/100 WBC (Bld) 64.3 % Normal . [facility] Comment on above: Performed By: #### A 1C WTH eA, CBC, T3F, CMP, LIPID, T4T, T3T, TSH3 #### [address] NRBC% 0.1 /100{WBC} Normal 0-0.5 [facility] Comment on above: Performed By: #### A 1C WTH eA, CBC, T3F, CMP, LIPID, T4T, T3T, TSH3 #### [address] Platelet mean volume (Bld) [Entitic vol] 7.2 fL Normal 6.3-10.7 [facility] Comment on above: Performed By: #### A 1C WTH eA, CBC, T3F, CMP, LIPID, T4T, T3T, TSH3 #### [address] Platelets (Bld) [#/Vol] 296 10*3/uL Normal 150-450 [facility] Comment on above: Performed By: #### A 1C WT eA, CBC, T3F, CMP, LIPID, T4T, T3T, TSH3 #### [address] RBC (Bld) [#/Vol] 4.36 10*6/uL Normal 3.60-5.00 [facility] Comment on above: Performed By: #### A 1C WTH eA, CBC, T3F, CMP, LIPID, T4T, T3T, TSH3 #### [address] WBC (Bld) [#/Vol] 5.8 10*3/uL Normal 3.8-11.6 [facility] Comment on above: Performed By: #### A 1C WTH eA, CBC, T3F, CMP, LIPID, T4T, T3T, TSH3 #### [address] Comprehensive Metabolic Pane lexi 01-11-2025 Albumin [Mass/Vol] 4.8 g/dL Normal 3.5-5.7 [facility] Comment on above: Performed By: #### A 1C WTH eA, CBC, T3F, CMP, LIPID, T4T, T3T, TSH3 #### [address] Albumin/Globulin [Mass ratio] 2.1 {ratio} Normal [facility] Comment on above: Performed By: #### A 1C WTH eA, CBC, T3F, CMP, LIPID, T4T, T3T, TSH3 #### [address] ALP [Catalytic activity/Vol] 37 U/L Normal 34-104 [facility] Comment on above: Performed By: #### A 1C WTH eA, CBC, T3F, CMP, LIPID, T4T, T3T, TSH3 #### [address] ALT [Catalytic activity/Vol] 14 U/L Normal 7-52 [facility] Comment on above: Performed By: #### A 1C WTH eA, CBC, T3F, CMP, LIPID, T4T, T3T, TSH3 #### [address] Anion gap [Moles/Vol] 10.7 mmol/L Normal 6.0-15.0 [facility] Comment on above: Performed By: #### A 1C WTH eA, CBC, T3F, CMP, LIPID, T4T, T3T, TSH3 #### [address] AST [Catalytic activity/Vol] 15 U/L Normal 13-39 [facility] Comment on above: Performed By: #### A 1C WTH eA, CBC, T3F, CMP, LIPID, T4T, T3T, TSH3 #### [address] Bilirubin [Mass/Vol] 0.7 mg/dL Normal 0.3-1.0 [facility] Comment on above: Performed By: #### A 1C WTH eA, CBC, T3F, CMP, LIPID, T4T, T3T, TSH3 #### [address] Calcium [Mass/Vol] 9.7 mg/dL Normal 8.6-10.3 [facility] Comment on above: Performed By: #### A 1C WTH eA, CBC, T3F, CMP, LIPID, T4T, T3T, TSH3 #### [address] Chloride [Moles/Vol] 106 mmol/L Normal 98-107 [facility] Comment on above: Performed By: #### A 1C WTH eA, CBC, T3F, CMP, LIPID, T4T, T3T, TSH3 #### [address] CO2 [Moles/Vol] 25.4 mmol/L Normal 21.0-31.0 [facility] Comment on above: Performed By: #### A 1C WTH eA, CBC, T3F, CMP, LIPID, T4T, T3T, TSH3 #### [address] Creatinine [Mass/Vol] 0.77 mg/dL Normal 0.60-1.20 [facility] Comment on above: Performed By: #### A 1C WTH eA, CBC, T3F, CMP, LIPID, T4T, T3T, TSH3 #### [address] GFR/1.73 sq M.predicted MDRD (S/P/Bld) [Vol rate/Area] mL/min/{1.73_m2} Normal [facility] Comment on above: Performed By: #### A 1C WTH eA, CBC, T3F, CMP, LIPID, T4T, T3T, TSH3 #### [address] Globulin (S) [Mass/Vol] 2.3 g/dL Normal [facility] Comment on above: Performed By: #### A 1C WTH eA, CBC, T3F, CMP, LIPID, T4T, T3T, TSH3 #### [address] Glucose [Mass/Vol] 95 mg/dL Normal 70-100 [facility] Comment on above: Result Comment: [facility] Glucose Reference Range is dependent on time and content of last meal. Glucose of more than 200 mg/dL in a nonstressed, ambulatory subject supports the diagnosis of Diabetes Mellitus. ADA recommended reference range Performed By: #### A 1C WTH eA, CBC, T3F, CMP, LIPID, T4T, T3T, TSH3 #### [address] Potassium [Moles/Vol] 4.1 mmol/L Normal 3.5-5.1 [facility] Comment on above: Performed By: #### A 1C WTH eA, CBC, T3F, CMP, LIPID, T4T, T3T, TSH3 #### [address] Protein [Mass/Vol] 7.1 g/dL Normal 6.4-8.9 [facility] Comment on above: Performed By: #### A 1C WTH eA, CBC, T3F, CMP, LIPID, T4T, T3T, TSH3 #### [address] Sodium [Moles/Vol] 138 mmol/L Normal 136-145 [facility] Comment on above: Performed By: #### A 1C WTH eA, CBC, T3F, CMP, LIPID, T4T, T3T, TSH3 #### [address] Urea nitrogen [Mass/Vol] 15 mg/dL Normal 7-25 [facility] Comment on above: Performed By: #### A 1C WTH eA, CBC, T3F, CMP, LIPID, T4T, T3T, TSH3 #### [address] Creatinine [Mass/volume] in Serum or PlasmaOrdered By: Tika Rojas on 01-11-2025 Creatinine [Mass/Vol] Creatinine [Mass/volume] in Serum or Plasma 0.60-1.20 [facility] Eosinophils Auto (Bld) [#/Vo l]Ordered By: Tika Rojas on 01-11-2025 Eosinophils (Bld) [#/Vol] Automated eosinophil count 0.0-0.45 [facility] Eosinophils/100 WBC Auto (Bl d)Ordered By: Tika Rojas on 01-11-2025 Eosinophils/100 WBC (Bld) Automated eosinophil % . [facility] Erythrocyte distribution wid th Auto (RBC) [Ratio]Ordered By: Tika Rojas on 01-11-2025 Erythrocyte distribution width (RBC) [Ratio] Erythrocyte distribution width [Ratio] by Automated count 11.9-15.3 [facility] Globulin Calc (S) [Mass/Vol] Ordered By: Tika Rojas on 01-11-2025 Globulin (S) [Mass/Vol] Serum globulin measurement by calculation (mass/volume) [facility] Glucose [Mass/volume] in Ser um or PlasmaOrdered By: Tika Rojas on 01-11-2025 Glucose [Mass/Vol] Glucose [Mass/volume ] in Serum or Plasma 70-100 [facility] Comment on above: ADA recommended refe rence rangeRandom Glucose Reference Range is dependent on time and content of last meal. Glucose of more than 200 mg/dL in a nonstressed, ambulatory subject supports the diagnosis of Diabetes Mellitus. Hematocrit Auto (Bld) [Volum e fraction]Ordered By: Tika Rojas on 01-11-2025 Hematocrit (Bld) [Volume fraction] Hematocrit [Volume Fraction] of Blood by Automated count 34.0-46.4 [facility] Hemoglobin [Mass/volume] in BloodOrdered By: Tika Rojas on 01-11-2025 Hemoglobin (Bld) [Mass/Vol] Hemoglobin [Mass/volume] in Blood 11.8-15.4 [facility] Leukocytes [#/volume] correc lili for nucleated erythrocytes in Blood by Automated counOrdered By: Tika Rojas on 01-11-2025 WBC corrected for nucl RBC Auto (Bld) [#/Vol] Leukocytes [#/volume] corrected for nucleated erythrocytes in Blood by Automated coun 3.8-11.6 [facility] Lipid Panelon 01-11-2025 Cholesterol [Mass/Vol] 228 mg/dL High 140-200 [facility] Comment on above: Result Comment: Chol less than 200 mg/dl low risk Chol 201-239 mg/dl borderline risk Chol 240 mg/dl and greater high risk Performed By: #### A 1C WTH eA, CBC, T3F, CMP, LIPID, T4T, T3T, TSH3 #### [facility] [address] Cholesterol in HDL [Mass/Vol] 77 mg/dL Normal 23-92 [facility] Comment on above: Result Comment: HDL CHOL ATP-III CLASSIFICATION Cardiovascular Risk HDL > or equal to 60 mg/dL LOW HDL < 40 mg/dL HIGH Performed By: #### A 1C WTH eA, CBC, T3F, CMP, LIPID, T4T, T3T, TSH3 #### [facility] [address] [place] [address] [facility] Cholesterol.total/Choles terol in HDL [Mass ratio] 3.0 {ratio} Normal <5.0 [facility] Comment on above: Performed By: #### A 1C WTH eA, CBC, T3F, CMP, LIPID, T4T, T3T, TSH3 #### [facility] [address] [place] [id number] [facility] LDL Cholesterol,Calculated 140 mg/dL High 0-100 [facility] Comment on above: Result Comment: LDL ATP III CLASSIFICATION LDL less than 100 mg/dL Optimal LDL 100-129 mg/dL Near or above optimal LDL 130-159 mg/dL Borderline high LDL 160-189 mg/dL High LDL greater than 189 mg/dL Very high Performed By: #### A 1C WTH eA, CBC, T3F, CMP, LIPID, T4T, T3T, TSH3 #### [facility] [address] [place] [id number] [facility] Triglyceride w/Reflex 55 mg/dL Normal 0-149 [facility] Comment on above: Result Comment: TRIG ATP III CLASSIFICATION TRIG less than 150 mg/dL Normal TRIG 150-199 mg/dL Borderline high TRIG 200-500 mg/dL High TRIG greater than 500 mg/dL Very high Standard traceable to the Center for Disease Conrtrol and Prevention (CDC) test method. Performed By: #### A 1C WTH eA, CBC, T3F, CMP, LIPID, T4T, T3T, TSH3 #### [facility] [address] VLDL CHOLESTEROL 11 mg/dL Normal [facility] Comment on above: Performed By: #### A 1C WTH eA, CBC, T3F, CMP, LIPID, T4T, T3T, TSH3 #### [facility] [address] Lymphocytes Auto (Bld) [#/Vo l]Ordered By: Tika Rojas on 01-11-2025 Lymphocytes (Bld) [#/Vol] Lymphocytes [#/volume] in Blood by Automated count 1.00-4.8 [facility] Lymphocytes/100 WBC Auto (Bl d)Ordered By: Tika Rojas on 01-11-2025 Lymphocytes/100 WBC (Bld) Lymphocytes/100 leukocytes in Blood by Automated count . [facility] MCH Auto (RBC) [Entitic mass ]Ordered By: Tika Rojas on 01-11-2025 MCH (RBC) [Entitic mass] MCH [Entitic ma ss] by Automated count 24.7-34.3 [facility] MCHC Auto (RBC) [Mass/Vol]Or dered By: Tika Rojas on 01-11-2025 MCHC (RBC) [Mass/Vol] MCHC [Mass/volume] by Automated count 32.0-35.0 [facility] MCV Auto (RBC) [Entitic vol] Ordered By: Tika Rojas on 01-11-2025 MCV (RBC) [Entitic vol] MCV [Entitic vol ume] by Automated count 80-100 [facility] Monocytes Auto (Bld) [#/Vol] Ordered By: Tika Rojas on 01-11-2025 Monocytes (Bld) [#/Vol] Automated blood monocyte count 0.0-0.8 [facility] Monocytes/100 WBC Auto (Bld) Ordered By: Tika Rojas on 01-11-2025 Monocytes/100 WBC (Bld) Automated monocyte % . [facility] Neutrophils Auto (Bld) [#/Vo l]Ordered By: Tika Rojas on 01-11-2025 Neutrophils (Bld) [#/Vol] Neutrophils [#/volume] in Blood by Automated count 1.8-7.7 [facility] Neutrophils/100 WBC Auto (Bl d)Ordered By: Tika Rojas on 01-11-2025 Neutrophils/100 WBC (Bld) Automated neutrophil % . [facility] No Panel InformationOrdered By: Tika Rojas on 01-11-2025 Estimated GFR (CKD-EPI) > 60.0 mL/Min [facility] Creatinine Clearance (Chem N/A [facility] Nucleated erythrocytes [Pres ence] in Blood by Automated countOrdered By: Tika Rojas on 01-11-2025 Nucleated RBC Auto Ql (Bld) Nucleated erythrocytes [Presence] in Blood by Automated count 0-0.5 [facility] Platelet mean volume Auto (B ld) [Entitic vol]Ordered By: Tika Rojas on 01-11-2025 Platelet mean volume (Bld) [Entitic vol] Platelet mean volume [Entitic volume] in Blood by Automated count 6.3-10.7 [facility] Platelets Auto (Bld) [#/Vol] Ordered By: Tika Rojas on 01-11-2025 Platelets (Bld) [#/Vol] Platelets [#/vol ume] in Blood by Automated count 150-450 [facility] Potassium [Moles/volume] in Serum or PlasmaOrdered By: Tika Rojas on 01-11-2025 Potassium [Moles/Vol] Potassium [Moles/volume] in Serum or Plasma 3.5-5.1 [facility] Protein [Mass/volume] in Ser um or PlasmaOrdered By: Tika Rojas on 01-11-2025 Protein [Mass/Vol] Protein [Mass/volume ] in Serum or Plasma 6.4-8.9 [facility] RBC Auto (Bld) [#/Vol]Ordere d By: Tika Rojas on 01-11-2025 RBC (Bld) [#/Vol] Erythrocytes [#/volume] in Blood by Automated count 3.60-5.00 [facility] Serum or plasma albumin/glob ulin mass ratioOrdered By: Tika Rojas on 01-11-2025 Albumin/Globulin [Mass ratio] Serum or plasma albumin/globulin mass ratio [facility] Serum or plasma anion gap de terminationOrdered By: Tika Rojas on 01-11-2025 Anion gap [Moles/Vol] Serum or plasma an ion gap determination 6.0-15.0 [facility] Serum or plasma total choles terol/high density lipoprotein (HDL) cholesterol mass ratOrdered By: Tika Rojas on 01-11-2025 Cholesterol.total/Choles terol in HDL [Mass ratio] Serum or plasma total cholesterol/high density lipoprotein (HDL) cholesterol mass rat <5.0 [facility] Sodium [Moles/volume] in Ser um or PlasmaOrdered By: Tika Rojas on 01-11-2025 Sodium [Moles/Vol] Sodium [Moles/volume ] in Serum or Plasma 136-145 [facility] Thyroid Stimulating Hormoneo n 01-11-2025 TSH Qn 1.16 m[IU]/L Normal 0.45-5.33 [facility] Comment on above: Result Comment: PERF ORMED BY: [place] [address] PATHOLOGIST [employer] MARVIN MACDONALD M.D. Performed By: #### A 1C [facility] eA, CBC, T3F, CMP, LIPID, T4T, T3T, TSH3 #### [facility] [address] Thyrotropin [Units/volume] i n Serum or PlasmaOrdered By: Tika Rojas on 01-11-2025 TSH Qn Thyrotropin [Units/volume] in Serum or Plasma 0.45-5.33 [facility] Thyroxine (T4) Totalon 01-11 T4 [Mass/Vol] 10.04 ug/dL Normal 5.39-11.82 [facility] Comment on above: Performed By: #### A 1C [facility] eA, CBC, T3F, CMP, LIPID, T4T, T3T, TSH3 #### [facility] [address] Thyroxine (T4) [Mass/volume] in Serum or PlasmaOrdered By: Tika Rojas on 01-11-2025 T4 [Mass/Vol] Thyroxine (T4) [Mass/volume] in Serum or Plasma 5.39-11.82 [facility] Triglyceride [Mass/volume] i n Serum or PlasmaOrdered By: Tika Rojas on 01-11-2025 Triglyceride [Mass/Vol] Triglyceride [Mass/volume] in Serum or Plasma 0-149 [facility] Comment on above: TRIG ATP III CLASSIF ICATIONTRIG less than 150 mg/dL NormalTRIG 150-199 mg/dL Borderline highTRIG 200-500 mg/dL High TRIG greater than 500 mg/dL Very highStandard traceable to the Center for Disease Conrtrol and Prevention (CDC) test method. Triiodothyronine (T3) Freeon 01-11-2025 Triiodothyronine (T3) Free 3.67 pg/mL Normal 2.50-3.90 [facility] Comment on above: Result Comment: PERF ORMED BY: [place] [address] PATHOLOGIST [employer]ENER MARVIN MACDONALD M.D. Performed By: #### A 1C [facility] eA, CBC, T3F, CMP, LIPID, T4T, T3T, TSH3 #### [address] Triiodothyronine (T3) Free [ Mass/volume] in Serum or PlasmaOrdered By: Tika Rojas on 01-11-2025 Free T3 [Mass/Vol] Triiodothyronine (T3 ) Free [Mass/volume] in Serum or Plasma 2.50-3.90 [facility] Triiodothyronine (T3) Totalo n 01-11-2025 Triiodothyronine (T3) Total 1.13 ng/mL Normal 0.87-1.78 [facility] Comment on above: Performed By: #### A 1C WT eA, CBC, T3F, CMP, LIPID, T4T, T3T, TSH3 #### [facility] [address] Triiodothyronine (T3) [Mass/ volume] in Serum or PlasmaOrdered By: Tika Rojas on 01-11-2025 T3 [Mass/Vol] Triiodothyronine (T3 ) [Mass/volume] in Serum or Plasma 0.87-1.78 [facility] Urea nitrogen [Mass/volume] in Serum or PlasmaOrdered By: Tika Rojas on 01-11-2025 Urea nitrogen [Mass/Vol] Urea nitrogen [Mass/volume] in Serum or Plasma 05-26 [facility] WBC Auto (Bld) [#/Vol]Ordere d By: Tika Rojas on 01-11-2025 WBC (Bld) [#/Vol] Leukocytes [#/volume ] in Blood by Automated count 3.8-11.6 [facility] US HEAD NECK SOFT TISSUEon 0 12-21-2024 US HEAD NECK SOFT TISSUE EXAM: Soft Tiss ue Neck Ultrasound. REASON FOR EXAM: Right sided lump. COMPARISON: None FINDINGS: Scanning in an area of palpable concern is performed in the right level 2 neck. There is isoechoic subcutaneous mass measuring perhaps 3.4 x 1.9 cm although this is difficult to differentiate from adjacent subcutaneous fat. This is immediately inferior to the right parotid gland. No internal Doppler flow is present. No shadowing or distortion is present. IMPRESSION: Probable lipoma inferior to the right parotid gland. However, appearance is not specific. In the setting of clinical progression, a CT of the neck with IV contrast would be recommended to further assess. *This report is generated using voice recognition reporting ([employer]). On occasion [employer] erroneously drops words from the report or replaces the spoken word with similar sounding words. Please call with any questions/concerns regarding this report.* Dictated and transcribed 12/22/24/dpd This report has been electronically signed and approved by the interpreting radiologist. Normal Not Available MG MAMM SCREEN 3D TEGAN CADon 09-29-2022 MG MAMM SCREEN 3D TEGAN CAD Patient: EMILEE PAGAN Exam Date: 09/29/2022 : 1980 Gender:F Ordering : DR NATHALIA RIVAS . Admission #: [id number] Family : Order #: [id number] CLICK HERE TO VIEW EXAM RADIOLOGY REPORT [...] endometrial cancer at age 70. LOCATION: [facility] BREAST COMPOSITION: Extremely dense, which lowers the [...] M.D. on 09/30/2022 at 13:46 Normal [facility] US PELVIS AND TRANSVAGon US PELVIS AND [...] MICHAEL EPPS Date: 2022-09-29 19:23 Normal [facility] CBC AUTO DIFFon 09-22-2022 BASO # 0.0 103/ul Normal 0.0-0.1 [facility] Comment on above: Performed By: #### C BC #### [facility] [address] [place] [address] Dr. Ag Rubio Basophils/100 WBC (Bld) 0.9 % Normal 0.2-2.0 [facility] Comment on above: Performed By: #### C BC #### [facility] [address] [place] [address] Dr. Ag Rubio EO # 0.1 103/ul Normal 0.0-0.7 [facility] Comment on above: Performed By: #### C BC #### [facility] [address] [place] [address] Dr. Ag Rubio Eosinophils/100 WBC (Bld) 1.1 % Normal 0.9-7.0 [facility] Comment on above: Performed By: #### C BC #### [facility] [address] [place] [address] Dr. Ag Rubio Erythrocyte distribution width (RBC) [Ratio] 12.5 % Normal 11.0-15.0 [facility] Comment on above: Performed By: #### C BC #### [facility] [address] [place] [address] Dr. Ag Rubio Hematocrit (Bld) [Volume fraction] 38.7 % Normal 36.0-48.0 [facility] Comment on above: Performed By: #### C BC #### [facility] [address] [place] [address] Dr. Ag Rubio Hemoglobin (Bld) [Mass/Vol] 12.9 g/dL Normal 12.0-16.0 [facility] Comment on above: Performed By: #### C BC #### [facility] [address] [place] [address] Dr. Ag Rubio IG # 0.02 10e3/ul Normal 0.00-0.03 [facility] Comment on above: Performed By: #### C BC #### [facility] [address] [place] [address] Dr. Ag Rubio IG % 0.4 % Normal 0.0-0.5 [facility] Comment on above: Performed By: #### C BC #### [facility] [address] [place] [address] Dr. Ag Rubio LYMPH # 1.8 103/ul Normal 1.2-3.8 [facility] Comment on above: Performed By: #### C BC #### [facility] [address] [place] [address] Dr. Ag Rubio Lymphocytes/100 WBC (Bld) 37.4 % Normal 20.5-60.0 [facility] Comment on above: Performed By: #### C BC #### [facility] [address] [place] [address] Dr. Ag Rubio MANUAL DIFF REQ NO Normal [facility] Comment on above: Performed By: #### C BC #### [facility] [address] [place] [address] Dr. Ag Rubio MCH (RBC) [Entitic mass] 31.8 pg Normal 26.7-34.0 [facility] Comment on above: Performed By: #### C BC #### [facility] [address] [place] [address] Dr. Ag Rubio MCHC (RBC) [Mass/Vol] 33.3 g/dL Normal 29.9-35.2 [facility] Comment on above: Performed By: #### C BC #### [facility] [address] [place] [address] Dr. Ag Rubio MCV (RBC) [Entitic vol] 95.3 fL Normal 81.0-99.0 [facility] Comment on above: Performed By: #### C BC #### [facility] [address] [address] [address] Ag Rubio MONO # 0.6 103/ul Normal 0.3-0.8 [facility] Comment on above: Performed By: #### C BC #### [facility] [address] [address] [address] Ag Rubio Monocytes/100 WBC (Bld) 12.4 % Critically high 1.7-12. 0 [facility] Comment on above: Performed By: #### C BC #### [facility] [address] [address] [address] Ag Rubio NEUT # 2.2 103/ul Normal 1.4-6.5 [facility] Comment on above: Performed By: #### C BC #### [facility] [address] [place] [address] Dr. Ag Rubio Neutrophils/100 WBC (Bld) 47.8 % Normal 43.0-75.0 [facility] Comment on above: Performed By: #### C BC #### [facility] [address] [address] [address] Ag Rubio Platelet mean volume (Bld) [Entitic vol] 9.1 fL Critically low 9.5-13.5 [facility] Comment on above: Performed By: #### C BC #### [facility] [address] [address] [address] Ag Rubio PLT 251 103/ul Normal 150-450 [facility] Comment on above: Performed By: #### C BC #### [facility] [address] [address] [address] Ag Rubio RBC 4.06 106/ul Critically low 4.20-5.40 [facility] Comment on above: Performed By: #### C BC #### [facility] [address] [address] [address] Ag Rubio WBC 4.7 103/ul Normal 4.0-11.0 [facility] Comment on above: Performed By: #### C BC #### [facility] [address] [address] [address] Ag Rubio GLYCOHEMOGLOBIN A1Con 2021 ADA RECOMMENDATION SEE BELOW Normal [facility] Comment on above: Result Comment: ADA RECOMMENDED LIMIT 4.0 - 6.0 ADA THERAPEUTIC TARGET < 7.0 ACTION SUGGESTED > 7.0 Performed By: #### A 1C #### [facility] [address] [address] [address] Ag Rubio Glucose [Mass/Vol] 117 mg/dL Normal [facility] Comment on above: Performed By: #### A 1C #### [facility] [address] [address] [address] Ag Rubio HbA1c (Bld) [Mass fraction] 5.7 % Normal 4.5-6.2 [facility] Comment on above: Performed By: #### A 1C #### [facility] [address] [place] [address] Dr. Ag Rubio LIPID PROFILEon 09-22-2022 CHOL-HDL RATIO NORM SEE BELOW Normal [facility] Comment on above: Result Comment: 3.3 - 4.4 LOW RISK 4.4 - 7.1 AVERAGE RISK 7.1 - 11.0 MODERATE RISK >11.0 HIGH RISK Performed By: #### T SH, BMP, LIVER, LIPID #### [facility] [address] [place] [address] Dr. Ag Rubio Cholesterol [Mass/Vol] 197 mg/dL Normal <=200 [facility] Comment on above: Performed By: #### T SH, BMP, LIVER, LIPID #### [facility] [address] [address] [address] Ag Rubio Cholesterol in HDL [Mass/Vol] 90 mg/dL Critically high 40-60 [facility] Comment on above: Performed By: #### T SH, BMP, LIVER, LIPID #### [facility] [address] [address] [address] Ag Rubio Cholesterol in LDL [Mass/Vol] 98.0 mg/dL Normal [facility] Comment on above: Performed By: #### T SH, BMP, LIVER, LIPID #### [facility] [address] [address] [address] Ag Rubio Cholesterol.total/Choles terol in HDL [Mass ratio] 2.2 {ratio} Normal [facility] Comment on above: Performed By: #### T SH, BMP, LIVER, LIPID #### [facility] [address] [address] [address] Ag Rubio HDL NORMAL > or = 60 mg/dl - LO W CARDIOVASCULAR RISK <40 mg/dl - HIGH CARDIOVASCULAR RISK Normal [facility] Comment on above: Performed By: #### T SH, BMP, LIVER, LIPID #### [facility] [address] [address] [address] Ag Rubio LDL CALC NORMAL SEE BELOW Normal [facility] Comment on above: Result Comment: <100 mg/dl OPTIMAL 100 - 129 mg/dl NEAR OR ABOVE OPTIMAL 130 - 159 mg/dl BORDERLINE HIGH 160 - 189 mg/dl HIGH >190 mg/dl VERY HIGH Performed By: #### T SH, BMP, LIVER, LIPID #### [facility] [address] [address] [address] Ag Rubio Triglyceride [Mass/Vol] 45 mg/dL Normal <=150 T [facility] Comment on above: Performed By: #### T SH, BMP, LIVER, LIPID #### [facility] [address] [address] [address] Ag Rubio VLDL CALC 9.0 mg/dL Normal [facility] Comment on above: Performed By: #### T SH, BMP, LIVER, LIPID #### [facility] [address] [address] [address] Ag Rubio LIVER PROFILEon 09-22-2022 Albumin [Mass/Vol] 4.1 g/dL Normal 3.4-5.0 [facility] Comment on above: Performed By: #### T SH, BMP, LIVER, LIPID #### [facility] [address] [address] [address] Ag Rubio Albumin/Globulin [Mass ratio] 1.3 {ratio} Normal [facility] Comment on above: Performed By: #### T SH, BMP, LIVER, LIPID #### [facility] [address] [address] [address] Ag Rubio ALP [Catalytic activity/Vol] 40 U/L Critically low 46-116 [facility] Comment on above: Performed By: #### T SH, BMP, LIVER, LIPID #### [facility] [address] [address] [address] Ag Rubio ALT [Catalytic activity/Vol] 25 U/L Normal 14-59 [facility] Comment on above: Performed By: #### T SH, BMP, LIVER, LIPID #### [facility] [address] [address] [address] Ag Rubio AST [Catalytic activity/Vol] 20 U/L Normal 15-37 [facility] Comment on above: Performed By: #### T SH, BMP, LIVER, LIPID #### [facility] [address] [place] [address] Dr. Ag Rubio BILI, CONJUGATED 0.1 mg/dL Normal 0.0-0.2 [facility] Comment on above: Performed By: #### T SH, BMP, LIVER, LIPID #### [facility] [address] [address] [address] Ag Rubio Bilirubin [Mass/Vol] 0.4 mg/dL Normal 0.2-1.0 [facility] Comment on above: Performed By: #### T SH, BMP, LIVER, LIPID #### [facility] [address] [address] [address] Ag Rubio Globulin (S) [Mass/Vol] 3.1 g/dL Normal [facility] Comment on above: Performed By: #### T SH, BMP, LIVER, LIPID #### [facility] [address] [address] [address] Ag Rubio Protein [Mass/Vol] 7.2 g/dL Normal 6.4-8.2 [facility] Comment on above: Performed By: #### T SH, BMP, LIVER, LIPID #### [facility] [address] [address] [address] Ag Rubio PROF CHEM 8 (BAS METB)on Anion gap [Moles/Vol] 10.1 mmol/L Normal [facility] Comment on above: Performed By: #### T SH, BMP, LIVER, LIPID #### [facility] [address] [address] [address] Ag Rubio Calcium [Mass/Vol] 9.3 mg/dL Normal 8.5-10.1 [facility] Comment on above: Performed By: #### T SH, BMP, LIVER, LIPID #### [facility] [address] [address] [address] Ag Rubio Chloride [Moles/Vol] 103 mmol/L Normal 98-107 [facility] Comment on above: Performed By: #### T SH, BMP, LIVER, LIPID #### [facility] [address] [address] [address] Ag Rubio CO2 [Moles/Vol] 28.9 mmol/L Normal 21.0-32.0 [facility] Comment on above: Performed By: #### T SH, BMP, LIVER, LIPID #### [facility] [address] [address] [address] Ag Rubio Creatinine [Mass/Vol] 1.24 mg/dL Critically high 0.55-1.02 [facility] Comment on above: Performed By: #### T SH, BMP, LIVER, LIPID #### [facility] [address] [address] [address] gA Rubio EGFR-AF LATVIAN 57 mL/min/1.73m2 Critically low >=60 [facility] Comment on above: Performed By: #### T SH, BMP, LIVER, LIPID #### [facility] [address] [address] [address] Ag Rubio EGFR-NON AF LATVIAN 47 mL/min/1.73m2 Critically low >=60 [facility] Comment on above: Performed By: #### T SH, BMP, LIVER, LIPID #### [facility] [address] [address] [address] Ag Rubio Glucose [Mass/Vol] 76 mg/dL Normal 74-106 [facility] Comment on above: Performed By: #### T SH, BMP, LIVER, LIPID #### [facility] [address] [address] [address] Ag Rubio Potassium [Moles/Vol] 4.0 mmol/L Normal 3.5-5.1 [facility] Comment on above: Performed By: #### T SH, BMP, LIVER, LIPID #### [facility] [address] [place] [address] Dr. Ag Rubio Sodium [Moles/Vol] 138 mmol/L Normal 136-145 [facility] Comment on above: Performed By: #### T SH, BMP, LIVER, LIPID #### [facility] [address] [place] [address] Dr. Ag Rubio Urea nitrogen [Mass/Vol] 10.0 mg/dL Normal 7.0-18.0 [facility] Comment on above: Performed By: #### T SH, BMP, LIVER, LIPID #### [facility] [address] [place] [address] Dr. Ag Rubio Urea nitrogen/Creatinine [Mass ratio] 8.1 mg/mg Normal [facility] Comment on above: Performed By: #### T SH, BMP, LIVER, LIPID #### [facility] [address] [place] [address] Dr. Ag Rubio TSHon 09-22-2022 TSH 0.934 uIU/mL Normal 0.358-3.740 [facility] Comment on above: Performed By: #### T SH, BMP, LIVER, LIPID #### [facility] [address] [place] [address] Dr. Ag Rubio PAP ACOG PANEL 2: 30 to 65on 09-17-2022 . . Normal [facility] Comment on above: Result Comment: Perf ormed at: WB Performed By: #### [id number] #### [facility] [address] [place] [address] Dr. Ag Rubio Age Gdln ACOG Testing 30-65 Normal [facility] Comment on above: Performed By: #### [id number] #### [facility] [address] [place] [address] Dr. Ag Rubio DIAGNOSIS: Comment Normal [facility] Comment on above: Result Comment: NEGA TIVE FOR INTRAEPITHELIAL LESION OR MALIGNANCY. Performed at: WB Performed By: #### [id number] #### [facility] [address] [address] [address] Ag Rubio HPV Aptima Negative Normal Negative [facility] Comment on above: Result Comment: This nucleic acid amplification test detects fourteen high-risk HPV types (16,18,31,33,35,39,45,51,52,56,58,59,66,68) without differentiation. Performed at: =G Performed By: #### [id number] #### [facility] [address] [place] [address] Dr. Ag Rubio HPV Genotype Reflex Comment Normal [facility] Comment on above: Result Comment: Crit eria not met, HPV Genotype not performed. Performed at: WB Performed By: #### [id number] #### [facility] [address] [place] [address] Dr. Ag Rubio Methodology: Comment Normal [facility] Comment on above: Result Comment: This liquid based ThinPrep(R) pap test was screened with the use of an image guided system. Performed at: WB Performed By: #### [id number] #### [facility] [address] [place] [address] Dr. Ag Rubio Note: Comment Normal [facility] Comment on above: Result Comment: The Pap smear is a screening test designed to aid in the detection of premalignant and malignant conditions of the uterine cervix. It is not a diagnostic procedure and should not be used as the sole means of detecting cervical cancer. Both false-positive and false-negative reports do occur. . Performed at: WB Performed By: #### [id number] #### [facility] [address] [place] [address] Dr. Ag Rubio Performed by: Comment Normal [facility] Comment on above: Result Comment: Rm Guerra, [employer] (ASCP) Performed at: WB Performed By: #### [id number] #### [facility] [address] [place], [place] [address] Dr. Ag Rubio Specimen adequacy: Comment Normal [facility] Comment on above: Result Comment: Sati sfactory for evaluation. Endocervical and/or squamous metaplastic cells (endocervical component) are present. Performed at: WB Performed By: #### [id number] #### [facility] [address] [address] [address] Ag Rubio Vital Signs Date Time Vital Sign Value Performing Clinician Faci lity 12-08-2024 10:40-0500 Body height 160 cm Cesar Cosme MD Work Phone: [facility] 12-08-2024 10:40-0500 Body mass index (BMI) [Ratio] 23.91 kg/m2 Cesar Cosme MD Work Phone: [facility] 12-08-2024 10:40-0500 Body temperature 97.3 [degF] Cesar Cosme MD Work Phone: [facility] 12-08-2024 10:40-0500 Body weight 61.24 kg Cesar Cosme MD Work Phone: [facility] 12-08-2024 10:40-0500 Diastolic blood pressure 64 mm[Hg] Cesar Cosme MD Work Phone: [facility] [facility] 12-08-[facility]24 10:40-0500 Heart rate 129 /min Cesar Cosme MD Work Phone: [facility] 12-08-2024 10:40-0500 Respiratory rate 20 /min Cesar Cosme MD Work Phone: [facility] 12-08-2024 10:40-0500 SaO2% (BldA) [Mass fraction] 99 % Cesar Cosme MD Work Phone: [facility] 12-08-2024 10:40-0500 Systolic blood pressure 122 mm[Hg] Cesar Cosme MD Work Phone: [facility] 10-03-2024 14:18-0500 Body height 160 cm Cesar Cosme MD Work Phone: [facility] 10-03-2024 14:18-0500 Body mass index (BMI) [Ratio] 24.09 kg/m2 Cesar Cosme MD Work Phone: [facility] 10-03-2024 14:18-0500 Body temperature 97.11 [degF] Cesar Cosme MD Work Phone: [facility] 10-03-2024 14:18-0500 Body weight 61.69 kg Cesar Cosme MD Work Phone: [facility] 10-03-2024 14:18-0500 Diastolic blood pressure 52 mm[Hg] Cesar Cosme MD Work Phone: [facility] 10-03-2024 14:18-0500 Heart rate 116 /min Cesar Cosme MD Work Phone: [facility] 10-03-2024 14:18-0500 Respiratory rate 20 /min Cesar Cosme MD Work Phone: [facility] 10-03-2024 14:18-0500 SaO2% (BldA) [Mass fraction] 99 % Cesar Cosme MD Work Phone: [facility] 10-03-2024 14:18-0500 Systolic blood pressure 110 mm[Hg] Cesar Cosme MD Work Phone: [facility] Healthcare Encounters Encounter Date Encounter Type Care Provider Facility Start: 03-31-2025 End: 03-31-2025 Bamboo flowsheet Sarahy Langford PT Work Phone: [facility] Start: 03-31-2025 End: 03-31-2025 Bamboo flowsheet Sarahy Langford PT Work Phone: [facility] Start: 03-31-2025 End: 03-31-2025 ambulatory SARAHY LANGFORD Not Available Comment on above: Neck pain (Primary D x); Myofascial pain dysfunction syndrome; Temporomandibular dysfunction syndrome Start: 03-17-2025 End: 03-17-2025 ambulatory Sarahy A Pleasnick PT Work Phone: [facility] Comment on above: Neck pain (Primary D x); Myofascial pain dysfunction syndrome; Temporomandibular dysfunction syndrome Start: 03-17-2025 End: 03-17-2025 Bamboo flowsheet Sarahy A Pleasnick PT Work Phone: [facility] Start: 03-17-2025 End: 03-17-2025 Bamboo flowsheet Sarahy A Pleasnick PT Work Phone: [facility] Start: 03-01-2025 End: 03-01-2025 ambulatory Sarahy A Pleasnick PT Work Phone: [facility] Comment on above: Neck pain (Primary D x); Myofascial pain dysfunction syndrome; Temporomandibular dysfunction syndrome Start: 03-01-2025 End: 03-01-2025 Bamboo flowsheet Sarahy A Pleasnick PT Work Phone: [facility] Start: 03-01-2025 End: 03-01-2025 Bamboo flowsheet Sarahy A Pleasnick PT Work Phone: [facility] Start: 02-22-2025 End: 02-22-2025 ambulatory Sarahy A Pleasnick PT Work Phone: [facility] Comment on above: Neck pain (Primary D x); Myofascial pain dysfunction syndrome; Temporomandibular dysfunction syndrome Start: 02-22-2025 End: 02-22-2025 Bamboo flowsheet Sarahy A Pleasnick PT Work Phone: [facility] Start: 02-22-2025 End: 02-22-2025 Bamboo flowsheet Sarahy A Pleasnick PT Work Phone: [facility] Start: 02-15-2025 End: 02-15-2025 ambulatory Sarahy A Pleasnick PT Work Phone: [facility] Comment on above: Neck pain (Primary D x); Myofascial pain dysfunction syndrome; Temporomandibular dysfunction syndrome Start: 02-15-2025 End: 02-15-2025 Bamboo flowsheet Sarahy A Ez PT Work Phone: [facility] Start: 02-15-2025 End: 02-15-2025 Bamboo flowsheet Sarahy A Pleasnick PT Work Phone: [facility] Start: 02-08-2025 End: 02-08-2025 ambulatory Sarahy A Madelineasheath PT Work Phone: [facility] Comment on above: Neck pain (Primary D x); Myofascial pain dysfunction syndrome; Temporomandibular dysfunction syndrome Start: 02-08-2025 End: 02-08-2025 Bamboo flowsheet Sarahy A Pleasnick PT Work Phone: [facility] Start: 02-08-2025 End: 02-08-2025 Bamboo flowsheet Sarahy A Pleasnick PT Work Phone: [facility] Start: 01-31-2025 End: 01-31-2025 ambulatory Sarahy A Pleasnick PT Work Phone: [facility] Comment on above: Neck pain (Primary D x); Myofascial pain dysfunction syndrome; Temporomandibular dysfunction syndrome Start: 01-31-2025 End: 01-31-2025 Bamboo flowsheet Sarahy A Plepaola PT Work Phone: [facility] Start: 01-31-2025 End: 01-31-2025 Bamboo flowsheet Sarahy A Pleasnick PT Work Phone: [facility] Start: 01-25-2025 End: 01-25-2025 ambulatory SARAHY LANGFORD Not Available Start: 01-11-2025 End: 01-11-2025 Patient encounter procedure PHYSICIAN [facility] [address] Work Phone: Start: 01-11-2025 End: 01-11-2025 ambulatory PHYSICIAN NO [facility] Work Phone: Start: 01-11-2025 Encounter for genera l adult medical examination without abnormal findings Tika Rojas [facility] Start: 01-02-2025 End: 01-02-2025 Bamboo flowsheet Sarahy Langford PT Work Phone: [facility] Start: 01-02-2025 End: 01-02-2025 Bamboo flowsheet Sarahy Langford PT Work Phone: [facility] Start: 01-02-2025 End: 01-02-2025 ambulatory SARAHY LANGFORD Not Available Start: 12-21-2024 End: 12-21-2024 ambulatory CESAR COSME Not Available Start: 12-08-2024 End: 12-08-2024 Bamboo flowsheet Cesar Cosme MD Work Phone: [facility] Start: 12-08-2024 End: 12-08-2024 Bamboo flowsheet Cesar Cosme MD Work Phone: [facility] Start: 12-08-2024 End: 12-08-2024 ambulatory CESAR COSME Not Available Start: 12-08-2024 End: 12-08-2024 Office outpatient visit 25 minutes Cesar Cosme MD Work Phone: [facility] Comment on above: Temporomandibular dy sfunction syndrome (Primary Dx); Neck pain; Localized swelling, mass and lump, neck Start: 10-03-2024 End: 10-03-2024 ambulatory CESAR COSME Not Available Start: 10-03-2024 End: 10-03-2024 Bamboo flowsheet Cesar Cosme MD Work Phone: [facility] Start: 10-03-2024 End: 10-03-2024 Bamboo flowsheet Cesar Cosme MD Work Phone: [facility] Start: 10-03-2024 End: 10-03-2024 Patient encounter procedure Cesar Cosme MD Work Phone: [facility] Healthcare Start: 10-03-2024 End: 10-03-2024 Periodic preventive med est patient 40-64yrs Cesar Cosme MD Work Phone: [facility] Comment on above: Annual physical exam (Primary Dx); Colon cancer screening Start: 09-29-2022 End: 09-30-[address] CESAR COSME Facility:[facility] Start: 09-27-2022 Encounter for genera l adult medical examination without abnormal findings DR CESAR COSME [facility] Start: 09-22-2022 End: 09-23-[address] CESAR COSME Facility:[facility] Start: 09-22-2022 End: 09-23-2022 Encounter for general adult medical examination without abnormal findings DR CESAR COSME Facility:[facility] Start: 09-09-2022 End: 09-09-[address] CESAR COSME Facility:[facility] Procedures Date Procedure Procedure Detail Performing Clinician Start: 01-14-2024 Microscopic observat ion [Identifier] in Cervix by Cyto stain Cesar Cosme MD Work Phone: Start: 09-29-2022 Mammography Cesar roberts MD Work Phone: Plan of Treatment Date Care Activity Detail Author Start: 01-13-2027 Screening for malignant neoplasm of cervix [facility] Start: 07-03-2025 Influenza vaccination Influenza Vaccine (Season Ended) [facility] Start: 04-17-2025 End: 04-17-2025 ambulatory 04/17/2025 10:45 AM EDT Treatment [facility] [address] [place] [address] Sarahy Langford, PT [address] [place] [address] [facility] Start: 04-06-2025 End: 04-06-2025 Patient encounter procedure 04/06/2025 11:40 AM EDT Office Visit [facility] [address] [place] [address] Nathalia Rivas, DO [address] [place] [address] [facility] Start: 03-31-2025 End: 03-31-2025 ambulatory 03/31/2025 3:30 PM EDT Treatment [facility] [address] [place] [address] Sarahy Langford, PT [address] [place] [address] [facility] Start: 03-31-2025 End: 03-31-2025 ambulatory 03/31/2025 10:30 AM EDT Treatment [facility] [address] [place] [address] Sarahy Langford, PT [address] [place] [address] [facility] Start: 03-17-2025 End: 03-17-2025 ambulatory 03/17/2025 3:30 PM EDT Treatment [facility] [address] [place] [address] Sarahy Langford, PT [address] [place] [address] [facility] Start: 03-14-2025 End: 03-14-2025 ambulatory 03/14/2025 3:30 PM EDT Treatment [facility] [address] [place] [address] Sarahy Langford, PT [address] [place] [address] [facility] Start: 03-01-2025 End: 03-01-2025 ambulatory 03/01/2025 3:30 PM EDT Treatment [facility] [address] [place] [address] Sarahy Langford, PT [address] [place] [address] [facility] Start: 02-22-2025 End: 02-22-2025 ambulatory 02/22/2025 3:30 PM EDT Treatment [facility] [address] [place] [address] Sarahy Langford, PT [address] [place] [address] [facility] Start: 02-15-2025 End: 02-15-2025 ambulatory 02/15/2025 3:30 PM EDT Treatment [facility] [address] [place] [address] Sarahy Langford, PT [address] [place] [address] [facility] Start: 02-08-2025 End: 02-08-2025 ambulatory 02/08/2025 3:30 PM EDT Treatment [facility] [address] [place] [address] Sarahy Langford, PT [address] [place] [address] [facility] Start: 01-31-2025 End: 01-31-2025 ambulatory 01/31/2025 4:30 PM EDT Treatment [facility] [address] [place] [address] Sarahy Langford, PT [address] [place] [address] Arrived [facility] Comment on above: Arrived Start: 01-11-2025 [facility] Start: 01-02-2025 End: 01-02-2025 ambulatory 01/02/2025 11:00 AM EST Evaluation [facility] [address] [place] [address] Sarahy Langford, PT [address] [place] [address] Temporomandibular dysfunction syndrome; Neck pain [facility] Comment on above: Temporomandibular dysfunction syndrome; Neck pain Start: 12-08-2024 End: 12-08-2025 US Head and neck soft tissue US head neck soft tissue Imaging Routine Localized swelling, mass and lump, neck Expected: 12/08/2024, Expires: 12/08/2025 [facility] Work Phone: Comment on above: Expected: 12/08/2024, Expires: Start: 10-03-2024 End: 10-03-2025 Basic metabolic 1998 panel - Serum or Plasma Basic metabolic panel Lab Routine Annual physical exam Expected: 10/03/2024 (Approximate), Expires: 10/03/2025 [facility] Comment on above: Expected: 10/03/2024 (Approximate), Expi res: 10/03/2025 Start: 10-03-2024 End: 10-03-2025 CBC W Auto Differential panel - Blood CBC and differential Lab Routine Annual physical exam Expected: 10/03/2024 (Approximate), Expires: 10/03/2025 [facility] Comment on above: Expected: 10/03/2024 (Approximate), Expi res: 10/03/2025 Start: 10-03-2024 End: 10-03-2025 Hemoglobin A1c/Hemoglobin.total in Blood Hemoglobin A1c Lab Routine Annual physical exam Expected: 10/03/2024 (Approximate), Expires: 10/03/2025 [facility] Work Phone: Comment on above: Expected: 10/03/2024 (Approximate), Expi res: 10/03/2025 Start: 10-03-2024 End: 10-03-2025 Hepatic function 2000 panel - Serum or Plasma Hepatic function panel Lab Routine Annual physical exam Expected: 10/03/2024 (Approximate), Expires: 10/03/2025 [facility] Comment on above: Expected: 10/03/2024 (Approximate), Expi res: 10/03/2025 Start: 10-03-2024 End: 10-03-2025 Lipid 1996 panel - Serum or Plasma Lipid panel Lab Routine Annual physical exam Expected: 10/03/2024 (Approximate), Expires: 10/03/2025 [facility] Comment on above: Expected: 10/03/2024 (Approximate), Expi res: 10/03/2025 Start: 10-03-2024 End: 10-03-2025 Thyrotropin [Units/volume] in Serum or Plasma TSH Lab Routine Annual physical exam Expected: 10/03/2024 (Approximate), Expires: 10/03/2025 [facility] Comment on above: Expected: 10/03/2024 (Approximate), Expi res: 10/03/2025 Start: 07-03-2024 Influenza vaccination Influenza Vaccine (#1) [facility] Start: 09-29-2023 Screening for malignant neoplasm of breast Mammogram [facility] Start: 2009 Screening for malignant neoplasm of cervix HPV/Cotest [facility] Start: 1979 Screening for malignant neoplasm of colon [facility] Glucose measurement estimated from glycated hemoglobin [facility] Hemoglobin A1c/Hemoglobin.total in Blood [facility] Payers Date Payer Category Payer Self-pay 2022 Other GENERIC OTHER [facility] [id number] 1979 Unknown [id number] 1979 Unknown [id number] 1979 Unknown [id number] 1979 Unknown [id number] [id number] 9 1979 Unknown [id number] [id number] 9 1979 Unknown [id number] [id number] 9 1979 Unknown [id number] [id number] 9 1979 Unknown [id number] [id number] 9 1979 Unknown [id number] [id number] 9 1979 Unknown [id number] [id number] 9 1979 Unknown [id number] [id number] 9 1979 Unknown [id number] [id number] 9 1979 Unknown [id number] [id number] 9 1979 Unknown [id number] [id number] 9 1979 Unknown [id number] [id number] 9 1959 Unknown [id number] Unknown [place] [id number] Social History Date Type Detail Facility Start: 01-13-2024 End: 10-03-2024 Tobacco smoking status TXIS Never smoked tobacco [facility] Start: 01-13-2024 End: 12-08-2024 Alcoholic beverage intake Lifetime non-drinker (finding) [facility] Start: 01-13-2024 End: 12-08-2024 History of Social function [facility] Start: 01-13-2024 End: 12-08-2024 Tobacco use panel [facility] Start: 1980 Sex assigned at Not on file [facility] Start: 10-03-2024 Tobacco use and exposure Smokeless tobacco non-user [facility] Tobacco smoking stat us NHIS Unknown if ever smoked [facility] Work Phone: Start: 01-12-2025 Sex Female (finding) [facility] Start: 1980 Sex Assigned At Female F [facility] Clinical Notes 10-03-2024 to 03-31-2025 Sarahy Langford, PT - 03/31/2025 10:30 AM Stephen Langford, PT - 03/17/2025 3:30 PM Stephen Langford, PT - 03/01/2025 3:30 PM Raymundo Cosme MD - 12/08/2024 11:11 AM EST Note Date & Type Note Facility 03-31-2025 History of Presen t illness Narrative Physical Therapy Physical Therapy Treatment Visit Time [...] on thoracic roll. Focus on R upper cervical spine today with R rotation end range. Able to improve R rotation ROM actively without pain. She is noticing improvement with turning head to the R with less stiffness, elan while driving. She is having less HAs and less neck pain in general. She will keep a record of her GIBSON frequency and if meds required to abolish in order to track progress. Will see again in 2 weeks. documented in this encounter [facility] 03-17-2025 History of Presen t illness Narrative Physical Therapy Physical Therapy Treatment Visit Time In: 3:40 pm Time Out: 4:20 pm Supervised Time: 40 Total Time: 40 Visit number: 07/01 Precautions: R sided lipoma submandibular Subjective Chief Complaint: M26.609 (ICD-10-CM) - Temporomandibular dysfunction syndrome M54.2 (ICD-10-CM) - Neck pain 3. Turning head better to the R. Had HAs on and off. Took Ibuprofen for it this morning and went away. Tension on R upper cervical region intermittent with rotation to R. GIBSON 2-3 per week. Some don't require medication. INTERVENTIONS: X30 minutes of manual therapy thoracic, cervical X10 minutes of therex of postural stretching per flowsheet Assessment/Plan Reports compliance with home stretches. Up to 4 minutes on thoracic roll. Focus on R upper cervical spine today with R rotation end range. Able to improve R rotation ROM actively without pain. She is noticing improvement with turning head to the R with less stiffness, elan while driving. She is having less HAs and less neck pain in general. She will keep a record of her GIBSON frequency and if meds required to abolish in order to track progress. Will see again in 2 weeks. documented in this encounter [facility] 03-01-2025 History of Presen t illness Narrative Physical Therapy Physical Therapy Treatment Visit Time In: 3:40 pm Time Out: 4:40 pm Supervised Time: 60 Total Time: 60 Visit number: 05/31 Precautions: R sided lipoma submandibular Subjective Chief Complaint: M26.609 (ICD-10-CM) - Temporomandibular dysfunction syndrome M54.2 (ICD-10-CM) - Neck pain 3. Better with some improvement with motion turning head to R. HAs either side Thursday and Thursday. None today. Tightness on R side of neck down to upper back. She thinks improving overall. INTERVENTIONS: X35 minutes of manual therapy thoracic, cervical X25 minutes of therex of postural stretching per flowsheet Assessment/Plan Reports compliance with home stretches. Up to 4 minutes on thoracic roll. Focus on R upper cervical spine today with R rotation end range. Able to improve R rotation ROM actively without pain. Pt to follow up with R rotation AROM while supine 2x per day minimum to keep end range of motion. Assess R rotation next and work on normalizing. We discussed decreasing frequency to every 2 weeks now which she agreed that she is ready for this. Continue to work on abolishing HAs and R sided neck pain. documented in this encounter [facility] 02-22-2025 History of Presen t illness Narrative Physical Therapy Physical Therapy Treatment Visit Time In: 3:55 pm Time Out: 4:40 pm Supervised Time: 45 Total Time: 45 Visit number: 05/01 Precautions: R sided lipoma submandibular Subjective Chief Complaint: M26.609 (ICD-10-CM) - Temporomandibular dysfunction syndrome M54.2 (ICD-10-CM) - Neck pain 3. Ear pain in morning and behind skull on both sides. Lasts 30 minutes. Notices she is feeling it more on R with turning head. INTERVENTIONS: X25 minutes of manual therapy thoracic, cervical X20 minutes of therex of postural stretching per flowsheet Assessment/Plan Reports compliance with home stretches. Up to 4 minutes on thoracic roll. Focus on R upper cervical spine today with R rotation end range. Able to improve R rotation ROM actively without pain. Pt to follow up with R rotation AROM while supine 2x per day minimum to keep end range of motion. Assess R rotation next and work on normalizing. documented in this encounter [facility] 02-15-2025 History of Presen t illness Narrative Physical Therapy Physical Therapy Treatment Visit Time In: 3:45 pm Time Out: 4:35 pm Supervised Time: 50 Total Time: 50 Visit number: 03/31 Precautions: R sided lipoma submandibular Subjective Chief Complaint: M26.609 (ICD-10-CM) - Temporomandibular dysfunction syndrome M54.2 (ICD-10-CM) - Neck pain 3. No HAs since I saw her. Off of Norflex. Notices neck catches when trying to turn head at times, could be either direction. R arm then L arm aching. Rotated bed and started feeling it in other arm. INTERVENTIONS: X35 minutes of manual therapy thoracic, cervical X15 minutes of therex of postural stretching per flowsheet Assessment/Plan Reports compliance with home stretches. Up to 4 minutes on thoracic roll. Worked on cervical and thoracic spines only today. Asymmetry and malrotation noted in UC spine. Manual therapy correction attempts. Repeated retraction and extension cervical off of plinth to address shoulder radiation. Added light cuff strength per flowsheet and issued TB for home performance to address possible anterior impingement issues. Assess change in shoulders next session from working on TB HEP. documented in this encounter [facility] 02-08-2025 History of Presen t illness Narrative Physical Therapy Physical Therapy Treatment Visit Time In: 3:40 pm Time Out: 4:30 pm Supervised Time: 50 Total Time: 50 Visit number: 03/01 Precautions: R sided lipoma submandibular Subjective Chief Complaint: M26.609 (ICD-10-CM) - Temporomandibular dysfunction syndrome M54.2 (ICD-10-CM) - Neck pain 3. No HAs since I saw her. 1/2 Norflex at night now. Intermittent R ear or jaw pain but not as often. Denies pain anywhere at the moment. INTERVENTIONS: X35 minutes of manual therapy thoracic, cervical, R TMJ externally X15 minutes of therex of postural stretching and HEP instruction with written HEP issued Assessment/Plan Reports compliance with home stretches. Up to 4 minutes on thoracic roll. R TMJ manual techniques along with thoracic and cervical. Upper cervical hypomobility but less asymmetry noted. R sided hypo on thoracic, L UC. No HAs x 2 weeks. Weaning off of muscle relaxer. She feels she is doing very well. Reports compliance with HEP. Plan to continue work on thoracic and cervical asymmetries with manual techniques until goals met. documented in this encounter [facility] 01-31-2025 History of Presen t illness Narrative Physical Therapy Physical Therapy Treatment Visit Time In: 4:40 pm Time Out: 5:40 pm Supervised Time: 60 Total Time: 60 Visit number: 01/29 Precautions: R sided lipoma submandibular Subjective Chief Complaint: M26.609 (ICD-10-CM) - Temporomandibular dysfunction syndrome M54.2 (ICD-10-CM) - Neck pain 3. GIBSON moved to L side after last session. No HAs since. Yawn with ear pain on R intermittent. Taking muscle relaxer before bed 1x per day now instead of 2x per day. INTERVENTIONS: X35 minutes of manual therapy thoracic, cervical, R TMJ externally X25 minutes of therex of postural stretching and HEP instruction with written HEP issued Assessment/Plan Reports compliance with home stretches. Up to 4 minutes on thoracic roll. R TMJ manual techniques along with thoracic and cervical. Upper cervical hypomobility but less asymmetry noted. R sided hypo on thoracic, L UC. No HAs x 1 week. Going to stick with muscle relaxer 1x per day then slowly wean off as able. documented in this encounter [facility] 12-08-2024 History of Presen t illness Narrative Associated Problem(s): Temporomandibular dysfunction syndrome Increased pain and treat with prednisone. Start flexeril PRN. Refer to PT. Follow up with specialist. Associated Problem(s): Localized swelling, mass and lump, neck Severe swelling in submandibular region and check US. Possibly enlarged lymph node related to TMJ. Images from the original note were not included. Subjective Patient ID: Emilee Pagan is a 44 y.o. female who presents for Neck Pain (Tender and swelling) and Temporomandibular Joint Pain. C/o worsening TMJ. Problems for years and started using mouth guard in 2006. Developed problems opening mouth in 2012 and sent to TMJ specialist. Prior PT for TMJ and neck pain which helped. Frequent massage and also helps. C/o increased pain over the past few weeks. Developed swelling on right side neck under jaw. Very tender with palpation. Pain to eat or open jaw. Scheduled with TMJ specialist in December. Wants to return to PT. Review of Systems Respiratory: Negative for cough, shortness of breath and wheezing. Cardiovascular: Negative for chest pain and palpitations. Gastrointestinal: Negative for abdominal pain, diarrhea, nausea and vomiting. Genitourinary: Negative for dysuria. Objective Physical Exam Constitutional: General: She is not in acute distress. Appearance: Normal appearance. HENT: Head: Normocephalic. Right Ear: Tympanic membrane normal. Left Ear: Tympanic membrane normal. Eyes: Extraocular Movements: Extraocular movements intact. Pupils: Pupils are equal, round, and reactive to light. Cardiovascular: Rate and Rhythm: Normal rate and regular rhythm. Heart sounds: No murmur heard. No friction rub. No gallop. Pulmonary: Effort: Pulmonary effort is normal. Breath sounds: Normal breath sounds. No wheezing, rhonchi or rales. Abdominal: General: Bowel sounds are normal. There is no distension. Palpations: Abdomen is soft. Tenderness: There is no abdominal tenderness. There is no guarding or rebound. Musculoskeletal: Cervical back: Neck supple. Right lower leg: No edema. Left lower leg: No edema. Neurological: Mental Status: She is alert. Assessment/Plan Problem List Items Addressed This Visit Temporomandibular dysfunction syndrome - Primary Relevant Medications predniSONE (Deltasone) 50 MG tablet cyclobenzaprine (Flexeril) 10 MG tablet Other Relevant Orders Ambulatory referral to Physical Therapy Neck pain Relevant Orders Ambulatory referral to Physical Therapy Localized swelling, mass and lump, neck Severe swelling in submandibular region and check US. Possibly enlarged lymph node related to TMJ. Relevant Orders US head neck soft tissue documented in this encounter [facility] 10-03-2024 History of Presen t illness Narrative Associated Problem(s): Annual physical exam Due for labs. Discussed proper diet and regular aerobic exercise. Need aerobic exercise 5-6 days a week for 30 minutes at a time. Smaller portions and limit total calories. Refer for colonoscopy. Tetanus every 10 years. Advised not to smoke. Discussed daily Aspirin therapy. Subjective Patient ID: Emilee Pagan is a 44 y.o. female who presents for Annual Exam (wellness). Presents for annual PE. Doing well at today's visit. Weight up 5 pounds over the past year. Tries to walk and stay active with the kids. Exercises several days a week. Tries to watch diet and eat healthy. Tries to limit portions and snacking. Tries to limit total daily calories. Due for labs. Never had colon cancer screening. Needs paperwork completed for insurance. Review of Systems Respiratory: Negative for cough, shortness of breath and wheezing. Cardiovascular: Negative for chest pain and palpitations. Gastrointestinal: Negative for abdominal pain, diarrhea, nausea and vomiting. Genitourinary: Negative for dysuria. Objective Physical Exam Constitutional: General: She is not in acute distress. Appearance: Normal appearance. HENT: Head: Normocephalic. Right Ear: Tympanic membrane normal. Left Ear: Tympanic membrane normal. Eyes: Extraocular Movements: Extraocular movements intact. Pupils: Pupils are equal, round, and reactive to light. Cardiovascular: Rate and Rhythm: Normal rate and regular rhythm. Heart sounds: No murmur heard. No friction rub. No gallop. Pulmonary: Effort: Pulmonary effort is normal. Breath sounds: Normal breath sounds. No wheezing, rhonchi or rales. Abdominal: General: Bowel sounds are normal. There is no distension. Palpations: Abdomen is soft. Tenderness: There is no abdominal tenderness. There is no guarding or rebound. Musculoskeletal: General: No swelling or tenderness. Cervical back: Neck supple. Right lower leg: No edema. Left lower leg: No edema. Skin: Findings: No erythema or rash. Neurological: General: No focal deficit present. Mental Status: She is alert and oriented to person, place, and time. Cranial Nerves: No cranial nerve deficit. Motor: No weakness. Gait: Gait normal. Assessment/Plan Problem List Items Addressed This Visit Annual physical exam - Primary Due for labs. Discussed proper diet and regular aerobic exercise. Need aerobic exercise 5-6 days a week for 30 minutes at a time. Smaller portions and limit total calories. Refer for colonoscopy. Tetanus every 10 years. Advised not to smoke. Discussed daily Aspirin therapy. Relevant Orders Hemoglobin A1c Basic metabolic panel CBC and differential Hepatic function panel Lipid panel TSH Other Visit Diagnoses Colon cancer screening Relevant Orders Ambulatory referral to General Surgery documented in this encounter [facility] Evaluation note Diagnosis Annual physical exam- Primary Routine general medical examination at a health care facility Colon cancer screening Special screening for malignant neoplasms, colon documented [facility]* Diagnosis Annual physical exam- Primary Routine general medical examination at a health care facility Colon cancer screening Special screening for malignant neoplasms, colon Temporomandibular dysfunction syndrome- Primary Unspecified temporomandibular joint disorders Neck pain Cervicalgia Localized swelling, mass and lump, neck Swelling, mass, or lump in head and neck [facility] noteNo assessment information [facility] Work Phone: Evaluation note* Diagnosis Annual physical exam- Primary Routine general medical examination at a health care facility Colon cancer screening Special screening for malignant neoplasms, colon Temporomandibular dysfunction syndrome- Primary Unspecified temporomandibular joint disorders Neck pain Cervicalgia Localized swelling, mass and lump, neck Swelling, mass, or lump in head and neck Neck pain- Primary Cervicalgia Myofascial pain dysfunction syndrome Unspecified myalgia and myositis Temporomandibular dysfunction syndrome Unspecified temporomandibular joint disorders [facility] Diagnosis Annual physical exam- Primary Routine general medical examination at a health care facility Colon cancer screening Special screening for malignant neoplasms, colon Temporomandibular dysfunction syndrome- Primary Unspecified temporomandibular joint disorders Neck pain Cervicalgia Localized swelling, mass and lump, neck Swelling, mass, or lump in head and neck Neck pain- Primary Cervicalgia Myofascial pain dysfunction syndrome Unspecified myalgia and myositis Temporomandibular dysfunction syndrome Unspecified temporomandibular joint disorders [facility] Diagnosis Annual physical exam- Primary Routine general medical examination at a health care facility Colon cancer screening Special screening for malignant neoplasms, colon Temporomandibular dysfunction syndrome- Primary Unspecified temporomandibular joint disorders Neck pain Cervicalgia Localized swelling, mass and lump, neck Swelling, mass, or lump in head and neck Neck pain- Primary Cervicalgia Myofascial pain dysfunction syndrome Unspecified myalgia and myositis Temporomandibular dysfunction syndrome Unspecified temporomandibular joint disorders documented in this encounter [facility] Healthcare[facility] note* Diagnosis Annual physical exam- Primary Routine general medical examination at a health care facility Colon cancer screening Special screening for malignant neoplasms, colon Temporomandibular dysfunction syndrome- Primary Unspecified temporomandibular joint disorders Neck pain Cervicalgia Localized swelling, mass and lump, neck Swelling, mass, or lump in head and neck Neck pain- Primary Cervicalgia Myofascial pain dysfunction syndrome Unspecified myalgia and myositis Temporomandibular dysfunction syndrome Unspecified temporomandibular joint disorders documented in this encounter [facility] HealthcareReason for visit Narrative* Rehabilitation - Outpatient (Routine) - Authorized Specialty Diagnoses / Procedures Referred By Eliceo ventura Referred To Contact Physical Therapy Diagnoses Temporomandibular dysfunction syndrome Neck pain Procedures [place] OFFICE/OUTPATIENT [facility] 60 MINUTES Cesar Cosme MD [address] [place] [address] Phone: tel: fax: Sarahy Langford, PT [address] [place] [address] Phone: tel: fax: Referral ID Status Reason Start Date Expiration Date Visits Requested Visits Authorized [id number] Authorized Consult and Treat 12/08/2024 11/01/2025 30 30 [facility] Healthcare Summary Purpose Family History No Family History Records FoundNo Family History Records FoundNo Family History Records Found Advance Directives Advance Directive Response Recorded Date/ Time Advance Directives No April 27 11:06am Chief Complaint and Reason for Visit Chief Complaint Admit Date z00.00 January 11, 2025 9:3 5am Additional Source Comments INFORMATION SOURCE (unrecogn ized section and content) DATE CREATED AUTHOR 10/04/2022 [facility] DATE CREATED AUTHOR AUTHOR'S ORGANIZ ATION 01/26/[address] [facility] DATE CREATED AUTHOR AUTHOR'S ORGANIZ ATION 04/02/2025 [facility] Care Teams (unrecognized sec tion and content) Senior Software Manager Relationship Specialty Start Date End Date Cesar Cosme MD [address] [place] [id number] PCP - General Family Medicine 10/03/24 Senior Software Manager Relationship Specialty Start Date End Date Cesar Cosme MD [address] [place] [phone] PCP - General Family Medicine 10/03/24 Senior Software Manager Relationship Specialty Start Date End Date Cesar Cosme MD [address] [place] [phone] PCP - General Family Medicine 10/03/24 Senior Software Manager Relationship Specialty Start Date End Date Cesar Cosme MD [address] [place] [phone] PCP - General Family Medicine 10/03/24 Senior Software Manager Relationship Specialty Start Date End Date Cesar Cosme MD [address] [place] [phone] PCP - General Family Medicine 10/03/24 Team Status: Active Member Role Status Dates PHYSICIAN NO FAMILY Primary Care Provider Active Team Status: Inactive Member Role Status Dates PHYSICIAN NO FAMILY Primary Care Provider Active Start: January 11, 2025 End: January 11, 2025 Tika Rojas DO Attending Provider Active Start: January 11, 2025 End: January 11, 2025 Senior Software Manager Relationship Specialty Start Date End Date Cesar Cosme MD [address] [place] [phone] PCP - General Family Medicine 10/03/24 Senior Software Manager Relationship Specialty Start Date End Date Cesar Cosme MD [address] [place] [address] PCP - General Family Medicine 10/03/24 Senior Software Manager Relationship Specialty Start Date End Date Cesar Cosme MD [address] [place] [address] PCP - General Family Medicine 10/03/24 Senior Software Manager Relationship Specialty Start Date End Date Cesar Cosme MD [address] [place] [address] PCP - General Family Medicine 10/03/24 Senior Software Manager Relationship Specialty Start Date End Date Cesar Cosme MD [address] [place] [address] PCP - General Family Medicine 10/03/24 Senior Software Manager Relationship Specialty Start Date End Date Cesar Cosme MD [address] [place] [address] PCP - General Family Medicine 10/03/24 Senior Software Manager Relationship Specialty Start Date End Date Cesar Cosme MD [address] [place] [address] PCP - General Family Medicine 10/03/24 Senior Software Manager Relationship Specialty Start Date End Date Cesar Cosme MD [address] [place] [address] PCP - General Family Medicine 10/03/24 Reason for Visit (unrecogniz ed section and content) Reason Comments Annual Exam wellness Reason Comments Neck Pain Tender and swelling Temporomandibular Joint Pain Goals (unrecognized section and content) Goals may be documented in a n alternate section FOR RECORDS PERTAINING TO PATIENTS WHO ARE [...] BE BASED ON THE PRIMARY CLINICAL RECORDS. [employer] [facility] provides no warranty or guarantee of the accuracy or completeness of information in this document.
[2025-04-11 17:09] LABS: Age Gdln ACOG Testing Note (.); HPV Aptima Negative (Negative); IGP, Aptima HPV, rfx 16/18,45 Note (.)
== END 2025-04-06 20:03 | disposition home or self-care (01) ==
LOC: LAB 20:02
PROVIDERS: PCP Family Medicine; Visit Provider Obstetrics & Gynecology
DX: Z01.419 Encounter for gynecological examination (general) (routine) without abnormal findings (principal)
CPT/HCPCS: 87624; 88175